=== PATIENT | male | born 1940 | race Caucasian/White ===

== ENCOUNTER → 2017-01-30 | Day surgery (SDC) | payer MEDICARE, BC ==
[~2017-01-30] MED LIST: ACETAMINOPHEN 1000 MG/100 ML VIAL IV ONE; ACIP20TA19 PO; ACIP20TA6 PO; ASPI81 PO; ASPI81TA11 PO; ATOR40TA PO; ATOR40TA16 PO; B-COTAB41 PO; BUPIVACAINE/EPINEPHRINE 0.5% PF 30 ML VIAL ONE; BUPR522T PO; CALC500C16 CHEW; CALC500T19 PO; CLON1 PO; CLON1TAB PO; DULO20 PO; ENAL2.5 PO; ENAL5TAB PO; EZET10 PO; FURO20TA PO; FURO40TA PO; GARL500C PO; GARL500C5 PO; INSU1INJ3 SQ; LACTATED RINGER'S 1000 ML INJ 1,000 ML ONE; METO200T3 PO; MIDAZOLAM HCL 2 MG/2 ML VIAL ONE; MULTTAB67 PO; PROPOFOL 200 MG/20 ML AMP IV ONE; SILD20TA11 PO; TAB-TAB PO; TAMS0.4C4 PO; TAMS0.4C67 PO; TRAZ300T2 PO; VITACAP7 PO; ZETI10TA5 PO; [UNRECOGNIZED DRUG - CODE] PO; ceFAZolin INJ 1,000 MG VIAL ONE
--- NOTE | 2017-01-30 17:24 | TN ---
cc: IZABELLA MANZANO DATE OF SURGERY 01/30/2017 PREOPERATIVE DIAGNOSIS 1. Right back mass 4 cm. 2. Left gynecomastia. POSTOPERATIVE DIAGNOSES 1. Right back mass 4 cm. 2. Left gynecomastia. PROCEDURE 1. Excision of right back mass 4 cm elliptical incision measuring 5 x 7 cm. 2. Subcutaneous mastectomy for gynecomastia, left breast. ANESTHESIA General. SURGEON Dr. Manzano INDICATIONS This is a pleasant 76-year-old gentleman. He has a fairly tender left breast from gynecomastia. He also has a groin mass on the right side of his back that required surgical excision. PROCEDURE The patient taken to the operating room, placed on the operating room table. After anesthesia he is placed in the right lateral decubitus position. The area in question is left back had been previously marked. We make an elliptical incision along the area in question and this is completely excised with an incision measuring 5 x 7 cm, appears to be a sebaceous cyst or inclusion cyst. This was passed off the field then irrigated with Betadine, assure hemostasis with electrocautery device and close the deep layer with a 2-0 Vicryl and skin is reapproximated with interrupted 3-[address] then [address] the patient back flat on the table. His left chest is prepped with Betadine. We make a curvilinear incision along the lower outer quadrant of the nipple-areolar complex. Dissect circumferentially to remove the gynecomastia enlarged tender breast tissue down to the pectoralis muscle. This was done with a combination of blunt dissection and sharp dissection and electrocautery dissection. The area question is then passed off the field. The area was irrigated copiously. Hemostasis assured with electrocautery device. We then close the deep layer with a 3-0 Vicryl and skin is closed with a 4-0 Monocryl. Steri-Strips applied. Sterile bandage applied. The patient tolerated the procedure well and had no immediate postop complications. Izabella Manzano MD JDB/EO /4:43 PM /5:04 PM
== END | disposition home or self-care (01) ==
LOC: ESDC 09:28
PROVIDERS: ATTEND Surgery
DX: N62 Hypertrophy of breast (principal); L72.0 Epidermal cyst; E11.9 Type 2 diabetes mellitus without complications; Z79.4 Long term (current) use of insulin
CPT/HCPCS: 00300; 00400; 11406; 19300; 82948; 88304; 88305; J0131; J0690; J2250; J3010; J7120; 88307

== ENCOUNTER → 2017-02-18 | Day surgery (SDC) | payer MEDICARE, BC ==
[~2017-02-18] MED LIST changes: -ACETAMINOPHEN 1000 MG/100 ML VIAL IV ONE; -ACIP20TA19 PO; -ASPI81 PO; -ATOR40TA PO; -B-COTAB41 PO; -BUPIVACAINE/EPINEPHRINE 0.5% PF 30 ML VIAL ONE; -BUPR522T PO; -CALC500T19 PO; -ENAL2.5 PO; -EZET10 PO; -FURO20TA PO; -GARL500C5 PO; +INCOBOTULINUMTOXINA 200 UNITS VIAL IM ONE; -LACTATED RINGER'S 1000 ML INJ 1,000 ML ONE; -MIDAZOLAM HCL 2 MG/2 ML VIAL ONE; -PROPOFOL 200 MG/20 ML AMP IV ONE; +SODIUM CHLORIDE 0.9% 10 ML VIAL ONE; -TAB-TAB PO; -TAMS0.4C67 PO; -ceFAZolin INJ 1,000 MG VIAL ONE
--- NOTE | 2017-02-21 11:33 | M6 ---
cc: MIRIAN PAZ M.D. DATE 02/18/2017 DATE OF 1940 PROCEDURE Injection botulinum toxin type A (Xeomin) left trapezius and posterior cervical musculature. PROCEDURE NOTE History and physical was completed and signed. Consent was signed. Procedure site was marked. Medications were listed and reconciled. Pain score was recorded. Allergies were noted. Time out was taken. Fluoroscopy time was recorded where applicable. Blood pressure cuff, pulse oximeter were applied. The patient was placed in the sitting position. The skin over the left trapezius and posterior cervical area was prepped with alcohol. The areas of greatest spasticity were identified. A 27 gauge needle was used to inject a total of 200 units of Xeomin at six different locations corresponding to the areas of greatest spasticity. Following this, the patient was observed in the recovery area with stable vital signs prior to being discharged. W. MD MARYLU Cortez/TYRONE /7:28 AM /11:37 AM
== END | disposition home or self-care (01) ==
LOC: PHSDC 06:30
PROVIDERS: ATTEND Pain Medicine Interventional Pain Medicine
DX: M54.2 Cervicalgia (principal); M25.512 Pain in left shoulder; R51 Headache; I11.0 Hypertensive heart disease with heart failure; I50.9 Heart failure, unspecified; E11.9 Type 2 diabetes mellitus without complications; E78.00 Pure hypercholesterolemia, unspecified; E04.1 Nontoxic single thyroid nodule; Z85.46 Personal history of malignant neoplasm of prostate; Z96.653 Presence of artificial knee joint, bilateral
CPT/HCPCS: 64616; J0588

== ENCOUNTER 2017-05-17 11:14 | Inpatient (IN) | payer MEDICARE, BC ==
[~2017-05-17] VITALS: Ht 180.3 cm; Wt 122.0 kg
[2017-05-17] VITALS (7 sets, daily range): BP systolic 110–148; BP diastolic 56–93; PULSE 72–93; RESP 16–20; TEMP 97.8–98; O2SAT 92–95
[~2017-05-17 11:14] MED LIST changes: -DULO20 PO; -GARL500C PO; -INCOBOTULINUMTOXINA 200 UNITS VIAL IM ONE; -SODIUM CHLORIDE 0.9% 10 ML VIAL ONE
--- NOTE | 2017-05-17 11:32 | PD ---
HPI Chief Complaint: Fall Time Seen by Provider: 11:32 Travel History International Travel<30 days: No Contact w/Intl Traveler<30days: No Traveled to known affect area: No History of Present Illness HPI 76-year-old male presents emergency department for evaluation of right wrist, neck, head pain status post fall last night. Patient reports he slipped on a wood floor while wearing socks falling onto the ground injuring his right wrist and hitting his head on a sliding glass door. He denies loss of consciousness. Patient is not anticoagulated. He reports a gradual onset throbbing type headache since the event. He reports generalized posterior neck pain. He reports generalized right wrist pain and swelling. He denies numbness/tingling/ weakness in any extremities. He denies nausea or vomiting or abdominal pain. He denies chest pain or shortness of breath. PFSH Past Medical History Arthritis: Yes (KNEES, SHOULDERS) Autoimmune Disease: No Blood Disorders: No Anxiety: Yes Depression: Yes Cancer: Yes (PROSTATE) Cardiac Catheterization: No Cardiovascular Problems: Yes (CHF, CARDIAC CATH x3) High Cholesterol: No Chemotherapy: No Chest Pain: No Diabetes: Yes (INSULIN DEP ) Endocrine: Yes Gastrointestinal Disorders: No GERD: Yes Glaucoma: No Genitourinary: No Hepatitis: No Hiatal Hernia: No Hypertension: Yes Immune Disorder: No Implanted Vascular Access Dvce: Yes Musculoskeletal: Yes (NECK, ARTHRITITS, PAIN LEFT WRIST FROM SPUR) Neurologic: Yes (cervical pain) Psychiatric: Yes (ANXIETY & DEPRESSION) Reproductive: Yes (HX: ENLARGED PROSTATE; HX PROSTATE SEEDS & RADIATION ) Respiratory: Yes (SLEEP APNEA - USES CPAP; ) Integumentary: No Radiation Therapy: Yes (2002 ) Sleep Apnea: Yes (ON CPAP MACHINE AT NIGHT) Thyroid Disease: Yes Ulcer: Yes (STOMACH ULCERS) Past Surgical History Abdominal Surgery: Yes (appendectomy geeta hernia repair) AICD: No Body Medical Devices: LEFT ANKLE WITH PIN + GEETA KNEE REPLAC, radioactive seed implants to prostat Cardiac Surgery: Yes (CARDIAC CATHS X 3 (NO STENTS NO SURG)) Coronary Artery Bypass Graft: No Ear Surgery: No Endocrine Surgery: No Eye Surgery: No Genitourinary Surgery: Yes (radioactive seed implants) Joint Replacement: Yes (BILAT KNEE) Oral Surgery: Yes (TONSILLECTOMY) Pacemaker: No Thoracic Surgery: No Other Surgery: Yes Social History Alcohol Use: No Tobacco Use: No Substance Use: No Allergies-Medications (Allergen,Severity, Reaction): Coded Allergies: doxycycline (Unverified Allergy, Severe, rash, 05/17/17) Reported Meds & Prescriptions Reported Meds & Active Scripts Active Reported Klonopin (Clonazepam) 1 Mg Tab 2 Mg PO BID Sildenafil 20 Mg Tab 20 Mg PO TID Calcium Carbonate (Antacid) 500 Mg Chew 1,000 Mg CHEW DAILY PRN Aplenzin ER 24 HR (Bupropion Hydrobromide ER 24 HR) 522 Mg Nichole 522 Mg PO DAILY Clonazepam 1 Mg Tab 1 Mg PO BID B Complex (B-Complex Vitamins) 1 Cap 1 Cap PO DAILY Humulin 70-30 Kwikpen Pen Inj (Insulin NPH Isophane-Reg (Human) 70-30 Inj) 300 Unit/3 Ml Pen 46 Units SQ DAILY@0600 Humulin 70-30 Kwikpen Pen Inj (Insulin NPH Isophane-Reg (Human) 70-30 Inj) 300 Unit/3 Ml Pen 44 Units SQ HS Enalapril (Enalapril Maleate) 5 Mg Tab 2.5 Mg PO DAILY Zetia (Ezetimibe) 10 Mg Tab 10 Mg PO DAILY Aciphex (Rabeprazole Sodium) 20 Mg Tab 20 Mg PO DAILY Metoprolol Succinate ER 24 HR (Metoprolol Succinate) 200 Mg Tab 100 Mg PO DAILY Multiple Vitamin 1 Tab 1 Tab PO DAILY Atorvastatin (Atorvastatin Calcium) 40 Mg Tab 40 Mg PO HS Trazodone (Trazodone HCl) 300 Mg Tab 150 Mg PO HS Tamsulosin (Tamsulosin HCl) 0.4 Mg Cap 0.4 Mg PO HS Furosemide 40 Mg Tab 40 Mg PO DAILY Aspirin EC (Aspirin) 81 Mg Tabdr 81 Mg PO DAILY Review of Systems Except as stated in HPI: all other systems reviewed are Neg General / Constitutional: No: Fever Eyes: No: Visual changes HENT: Positive: Headaches Cardiovascular: No: Chest Pain or Discomfort Respiratory: No: Shortness of Breath Gastrointestinal: No: Abdominal Pain Genitourinary: No: Dysuria Musculoskeletal: Positive: Other (right wrist pain) Skin: No Rash Physical Exam Narrative GENERAL: Alert, well-appearing elderly male in no acute distress. C-collar in place. SKIN: Focused skin assessment warm/dry. Mild ecchymosis and swelling to the right wrist HEAD: Atraumatic. Normocephalic. EYES: Pupils equal and round. No scleral icterus. No injection or drainage. EOMs intact. ENT: No nasal bleeding or discharge. Mucous membranes pink and moist. NECK: Trachea midline. No JVD. Tenderness over the midline cervical spine. C- collar in place. CARDIOVASCULAR: Regular rate and rhythm. No murmur appreciated. CHEST: No rib tenderness or crepitus. RESPIRATORY: No accessory muscle use. Clear to auscultation. Breath sounds equal bilaterally. GASTROINTESTINAL: Abdomen soft, non-tender, nondistended. Hepatic and splenic margins not palpable. MUSCULOSKELETAL: No obvious deformities. No clubbing. No cyanosis. No edema. Right upper extremity: Notable swelling, ecchymosis, tenderness to the medial lateral aspect of the wrist. 2+ distal pulses. Limited range of motion due to pain. Brisk cap refill. Normal sensation within the hand and digit. NEUROLOGICAL: Awake and alert. No obvious cranial nerve deficits. Motor grossly within normal limits. Normal speech. 5 out of 5 strength in upper and lower extremities. Equal hand grasp. PSYCHIATRIC: Appropriate mood and affect; insight and judgment normal. Data Data Last Documented VS Vital Signs Date Time Temp Pulse Resp B/P (MAP) Pulse Ox O2 Delivery O2 Flow Rate FiO2 05/17/17 12:33 84 16 140/77 (98) 92 Room Air 05/17/17 11:[address] Brain W/O Iv Contrast(Rout) (05/17/17 ) Ct Cerv Spine W/O Contrast (05/17/17 ) Wrist, Complete ([id number]) (05/17/17 ) Apply Cervical Collar (05/17/17 12:03) Splint Or Brace Apply/Monitor (05/17/17 12:04) Complete Blood Count With Diff (05/17/17 12:20) Comprehensive Metabolic Panel (05/17/17 12:20) Prothrombin Time / Inr (Pt) (05/17/17 12:20) Act Partial Throm Time (Ptt) (05/17/17 12:20) Fiberglass Sugartong Sp Ad Arm (05/17/17 ) Sling Cradle Arm (05/17/17 ) Consult Neurosurgery (05/17/17 ) (Hub Use Only)Inp Phy Cons/Ref (05/17/17 ) Admit Order (Ed Use Only) (05/17/17 12:42) Labs Laboratory Tests Test 05/17/17 12:31 White Blood Count 9.8 TH/MM3 Red Blood Count 4.48 MIL/MM3 Hemoglobin 13.8 GM/DL Hematocrit 40.4 % Mean Corpuscular Volume 90.0 FL Mean Corpuscular Hemoglobin 30.9 PG Mean Corpuscular Hemoglobin Concent 34.3 % Red Cell Distribution Width 12.4 % Platelet Count 153 TH/MM3 Mean Platelet Volume 8.6 FL Neutrophils (%) (Auto) 77.0 % Lymphocytes (%) (Auto) 11.6 % Monocytes (%) (Auto) 6.0 % Eosinophils (%) (Auto) 4.8 % Basophils (%) (Auto) 0.6 % Neutrophils # (Auto) 7.5 TH/MM3 Lymphocytes # (Auto) 1.1 TH/MM3 Monocytes # (Auto) 0.6 TH/MM3 Eosinophils # (Auto) 0.5 TH/MM3 Basophils # (Auto) 0.1 TH/MM3 CBC Comment DIFF FINAL Differential Comment Prothrombin Time 10.3 SEC Prothromb Time International Ratio 0.9 RATIO Activated Partial Thromboplast Time 24.3 SEC Blood Urea Nitrogen 11 MG/DL Creatinine 0.96 MG/DL Random Glucose 167 MG/DL Total Protein 6.2 GM/DL Albumin 3.3 GM/DL Calcium Level 8.7 MG/DL Alkaline Phosphatase 90 U/L Aspartate Amino Transf (AST/SGOT) 20 U/L Alanine Aminotransferase (ALT/SGPT) 32 U/L Total Bilirubin 0.6 MG/DL Sodium Level 139 MEQ/L Potassium Level 3.7 MEQ/L Chloride Level 105 MEQ/L Carbon Dioxide Level 29.3 MEQ/L Anion Gap 5 MEQ/L Estimat Glomerular Filtration Rate 76 ML/MIN [facility] Medical Decision Making Medical Screen Exam Complete: Yes Emergency Medical Condition: Yes Differential Diagnosis Wrist fracture versus contusion, cervical strain versus cervical spine fracture , ICH versus minor closed head injury Narrative Course 76-year-old male presents emergency department for evaluation of right wrist pain, neck pain, headache status post fall yesterday evening. There was no loss of consciousness. Patient is not anticoagulated. Patient reports he slipped on the floor while wearing socks falling onto an outstretched hand and hitting his head on a sliding glass door. On exam patient is well-appearing. He has notable swelling and tenderness to palpation of the right wrist. No deformity noted. 2+ distal pulses. Normal sensation within the extremity. Patient has a normal neurologic exam. Normal strength and sensation in upper extremities. C-collar was placed in triage. CT scan of the brain, cervical spine, x-ray of right wrist pending. CT of the cervical spine: C1 fracture X-ray right wrist: Nondisplaced distal radius fracture My attending physician Dr. Atwood assumed care of patient after radiology images were obtained. Please see his note for further details on continued care patient. Adia Yang May 17, 2017 11:32
--- NOTE | 2017-05-17 11:51 | RADRPT ---
EXAM DATE/TIME: 05/17/2017 11:35 [facility] COMPARISON: No previous studies available for comparison. INDICATIONS : Fall, right wrist pain. MEDICAL HISTORY : None. SURGICAL HISTORY : None. ENCOUNTER: Initial ACUITY: 1 day PAIN SCORE: 10/10 LOCATION: Right wrist FINDINGS: There is no evidence of dislocation with degenerative osteophytic changes of the first metacarpal mul tangular articulation. Additionally mild degenerative osteoarthritic changes are noted of the carpal radial articulation. On lateral view there is a cortical disruption ventrally of the distal radius wi th 1-1/2 cm proximal to the articular surface consistent with a non-displaced fracture. CONCLUSION: Subtle nondisplaced fracture cortical disruption ventral aspect of the distal radius. Ryan Franco MD on May 17, 2017 at 11:48 Board Certified Radiologist. This report was verified electronically.
--- NOTE | 2017-05-17 11:56 | RADRPT ---
EXAM DATE/TIME: 05/17/2017 11:47 [facility] COMPARISON: No previous studies available for comparison. INDICATIONS : Trauma. Fall. RADIATION DOSE: 65.42 CTDIvol (mGy) MEDICAL HISTORY : Carcinoma, prostate. Congestive heart failure. Diabetes mellitus type 2.Hypertension. SURGICAL HISTORY : Appendectomy. Inguinal hernia repair. ENCOUNTER: Initial ACUITY: 1 day PAIN SCALE: 4/10 LOCATION: cranial TECHNIQUE: Multiple contiguous axial images were obtained of the head. Using automated exposure control and adj ustment of the mA and/or kV according to patient size, radiation dose was kept as low as reasonably a chievable to obtain optimal diagnostic quality images. DICOM format image data is available electro nically for review and comparison. FINDINGS: CEREBRUM: The ventricles are mildly prominent consistent with atrophy. No evidence of midline shift, mass lesi on, hemorrhage or acute infarction. No extra-axial fluid collections are seen. POSTERIOR FOSSA: The cerebellum and brainstem are intact. The 4th ventricle is midline. The cerebellopontine angle i s unremarkable. EXTRACRANIAL: The visualized portion of the orbits is intact. Almost complete opacification right maxillary sinus. SKULL: The calvaria is intact. No evidence of skull fracture. CONCLUSION: Cerebral atrophy. No acute intracranial abnormality. Chronic right maxillary sinusitis. Don Eden MD on May 17, 2017 at 11:54 Board Certified Radiologist. This report was verified electronically.
--- NOTE | 2017-05-17 12:10 | RADRPT ---
EXAM DATE/TIME: 05/17/2017 11:47 This report includes an Addendum and supersedes previous reports for this exam. This report includes an Addendum and supersedes previous reports for this exam. [facility] COMPARISON: No previous studies available for comparison. INDICATIONS : Trauma. Fell last night. Left neck pain. RADIATION DOSE: 26.60 CTDIvol (mGy) MEDICAL HISTORY : Carcinoma, prostate. Congestive heart failure. Diabetes mellitus type 2.Hypertension. SURGICAL HISTORY : Appendectomy. Inguinal hernia repair. ENCOUNTER: Initial ACUITY: 1 day PAIN SCALE: 4/10 LOCATION: Left neck TECHNIQUE: Volumetric scanning of the cervical spine was performed. Multiplanar reconstructions in the sagittal, coronal and oblique axial planes were performed. Using automated exposure control and adjustment o f the mA and/or kV according to patient size, radiation dose was kept as low as reasonably achievable to obtain optimal diagnostic quality images. DICOM format image data is available electronically f or review and comparison. FINDINGS: And soft tissues are normal. Degenerative disc disease noted at C5-6 narrative space and anterior mar ginal spurring is multilevel facet arthritic changes. There is acute fracture of C2 left lateral mass extending i nto the base of the left lamina adjacent without displacement. This vertically oriented. CONCLUSION: Nondisplaced fracture C2 left lateral mass extending into the base of the lamina laterally Ryan Franco MD on May 17, 2017 at 12:04 Board Certified Radiologist. This report was verified electronically. ADDENDUM: There is a typographical error occurred. The fracture is of the C1 lateral mass Ryan Franco MD on May 17, 2017 at 12:26 Board Certified Radiologist. This report was verified electronically. ADDENDUM: Ryan Franco MD on May 17, 2017 at 12:29 Board Certified Radiologist. This report was verified electronically.
--- NOTE | 2017-05-17 12:20 | PD ---
Physical Exam Date Seen by Provider: May 17, 2017 Narrative GENERAL: patient supine and advised to stay supine and not move SKIN: Warm and dry. HEAD: Atraumatic. Normocephalic. EYES: Pupils equal and round. No scleral icterus. No injection or drainage. ENT: No nasal bleeding or discharge. Mucous membranes pink and moist. NECK: Trachea midline. No JVD. love collar placed in department. CARDIOVASCULAR: Regular rate and rhythm. RESPIRATORY: No accessory muscle use. Clear to auscultation. Breath sounds equal bilaterally. GASTROINTESTINAL: Abdomen soft, non-tender, nondistended. MUSCULOSKELETAL: Extremities without clubbing, cyanosis, or edema. No obvious deformities. ttp at distal right radius area will place OCL on it. NEUROLOGICAL: Awake and alert. No obvious cranial nerve deficits. Motor grossly within normal limits. Five out of 5 muscle strength in the arms and legs. Normal speech. PSYCHIATRIC: Appropriate mood and affect; insight and judgment normal. Data Data Last Documented VS Vital Signs Date Time Temp Pulse Resp B/P (MAP) Pulse Ox O2 Delivery O2 Flow Rate FiO2 05/17/17 12:33 84 16 140/77 (98) 92 Room Air 05/17/17 11:[address] Brain W/O Iv Contrast(Rout) (05/17/17 ) Ct Cerv Spine W/O Contrast (05/17/17 ) Wrist, Complete ([id number]) (05/17/17 ) Apply Cervical Collar (05/17/17 12:03) Splint Or Brace Apply/Monitor (05/17/17 12:04) Complete Blood Count With Diff (05/17/17 12:20) Comprehensive Metabolic Panel (05/17/17 12:20) Prothrombin Time / Inr (Pt) (05/17/17 12:20) Act Partial Throm Time (Ptt) (05/17/17 12:20) Fiberglass Sugartong Sp Ad Arm (05/17/17 ) Sling Cradle Arm (05/17/17 ) Consult Neurosurgery (05/17/17 ) (Hub Use Only)Inp Phy Cons/Ref (05/17/17 ) Admit Order (Ed Use Only) (05/17/17 12:42) Labs Laboratory Tests Test 05/17/17 12:31 White Blood Count 9.8 TH/MM3 Red Blood Count 4.48 MIL/MM3 Hemoglobin 13.8 GM/DL Hematocrit 40.4 % Mean Corpuscular Volume 90.0 FL Mean Corpuscular Hemoglobin 30.9 PG Mean Corpuscular Hemoglobin Concent 34.3 % Red Cell Distribution Width 12.4 % Platelet Count 153 TH/MM3 Mean Platelet Volume 8.6 FL Neutrophils (%) (Auto) 77.0 % Lymphocytes (%) (Auto) 11.6 % Monocytes (%) (Auto) 6.0 % Eosinophils (%) (Auto) 4.8 % Basophils (%) (Auto) 0.6 % Neutrophils # (Auto) 7.5 TH/MM3 Lymphocytes # (Auto) 1.1 TH/MM3 Monocytes # (Auto) 0.6 TH/MM3 Eosinophils # (Auto) 0.5 TH/MM3 Basophils # (Auto) 0.1 TH/MM3 CBC Comment DIFF FINAL Differential Comment Blood Urea Nitrogen 11 MG/DL Creatinine 0.96 MG/DL Random Glucose 167 MG/DL Total Protein 6.2 GM/DL Albumin 3.3 GM/DL Calcium Level 8.7 MG/DL Alkaline Phosphatase 90 U/L Aspartate Amino Transf (AST/SGOT) 20 U/L Alanine Aminotransferase (ALT/SGPT) 32 U/L Total Bilirubin 0.6 MG/DL Sodium Level 139 MEQ/L Potassium Level 3.7 MEQ/L Chloride Level 105 MEQ/L Carbon Dioxide Level 29.3 MEQ/L Anion Gap 5 MEQ/L Estimat Glomerular Filtration Rate 76 ML/MIN [facility] Medical Record Reviewed: Yes Supervised Visit with PEGGY: No Physician Communication Physician Communication D/W DR MARTINEZ WHO RECC XFER TO [facility], ADMIT TO TRAUMA SERVICE AND CONSULT HIM ( WHICH I ALREADY DID). Diagnosis Primary Impression: Closed C1 fracture Qualified Codes: S12.001A - Unspecified nondisplaced fracture of first cervical vertebra, initial encounter for closed fracture Additional Impression: Distal radius fracture, right Qualified Codes: S52.501A - Unspecified fracture of the lower end of right radius, initial encounter for closed fracture Disposition: 01 DISCHARGE HOME Condition: Stable Ruben Atwood MD May 17, 2017 12:20
[2017-05-17 12:36] LABS: AUTOMATED NEUTROPHIL # 7.5 TH/MM3 (1.8-7.7); BASOPHIL # 0.1 TH/MM3 (0-0.2); BASOPHIL % 0.6 % (0.0-2.0); EOSINOPHIL # 0.5 TH/MM3 (0-0.4); EOSINOPHIL % 4.8 % (0.0-4.0); HEMATOCRIT 40.4 % (39.0-51.0); HEMO FLAGS DIFF FINAL; LYMPH % 11.6 % (9.0-44.0); LYMPHOCYTE # 1.1 TH/MM3 (1.0-4.8); MEAN CORPUSCULAR HEMOGLOBIN 30.9 PG (27.0-34.0); MEAN CORPUSCULAR HGB CONC 34.3 % (32.0-36.0); PLATELET COUNT 153 TH/MM3 (150-450); RED BLOOD COUNT 4.48 MIL/MM3 (4.50-5.90); RED CELL DISTRIBUTION WIDTH 12.4 % (11.6-17.2); WHITE BLOOD COUNT 9.8 TH/MM3 (4.0-11.0)
[2017-05-17 12:44] LABS: CHLORIDE 105 MEQ/L (98-107); POTASSIUM 3.7 MEQ/L (3.5-5.1); SODIUM (NA) 139 MEQ/L (136-145)
[2017-05-17 12:48] LABS: ANION GAP 5 MEQ/L (5-15); BICARBONATE 29.3 MEQ/L (21.0-32.0); BLOOD UREA NITROGEN 11 MG/DL (7-18)
[2017-05-17 12:51] LABS: ALT (GPT) 32 U/L (12-78); AST (GOT) 20 U/L (15-37); GLOMERULAR FILTRATION RATE 76 ML/MIN (>89)
[2017-05-17 12:52] LABS: TOTAL BILIRUBIN ADULT 0.6 MG/DL (0.2-1.0)
[2017-05-17 12:54] LABS: ALKALINE PHOSPHATASE 90 U/L (45-117)
[2017-05-17 13:11] LABS: APTT (PATIENT) 24.3 SEC (24.3-30.1); INTERNATIONAL NORMALIZED RATIO 0.9 RATIO; PROTHROMBIN TIME - PATIENT 10.3 SEC (9.8-11.6)
--- NOTE | 2017-05-17 14:59 | PD.CONS ---
HPI Service Neurosurgery Consult Requested By Dr Epstein Reason for Consult C1 fracture Primary Care Physician Feliberto Shaffer, DO History of Present Illness Mr. Sykes is a 76-year-old white male with history of prostate cancer, type 2 diabetes, CHF, sleep apnea uses CPAP, and osteoarthritis. He presented to the [place] ED after he had a fall last night. Apparently he was walking on hardwood floors wearing socks, and he slipped and fell on the ground injuring his right wrist and hitting his head on a sliding glass door. He did not lose consciousness. No seizure activity reported. No tongue bitting. No incontinence of sotol or urine. He reported a gradual onset of a throbbing type headache since the event occur. He is complaining of generalized posterior neck pain. He also had pain in the right wrist with swelling of the wrist. No numbness, no tingling, no weakness of any extremities. Patient was evaluated, imaging studies were completed. CT of the cervical spine showed a C1 fracture. Right wrist x-ray shows nondisplaced fracture cortical disruption ventral aspect of the distal radius. Patient was transferred to the main hospital and admitted to trauma services. A splint has been placed on the right forearm. Laboratory workup completed essentially unremarkable. Patient is complaining of mild pain to the left neck area but otherwise neurologically intact. Neurosurgery consultation requested Review of Systems Constitutional: DENIES: Diaphoretic episodes, Fatigue, Fever, Weight gain, Weight loss, Chills, Dizziness, Change in appetite, Night Sweats Endocrine: DENIES: Heat/cold intolerance, Polydipsia, Polyuria, Polyphagia Eyes: DENIES: Blurred vision, Diplopia, Eye inflammation, Eye pain, Vision loss , Photosensitivity, Double Vision Ears, nose, mouth, throat: DENIES: Tinnitus, Hearing loss, Vertigo, Nasal discharge, Oral lesions, Throat pain, Hoarseness, Ear Pain, Running Nose, Epistaxis, Sinus Pain, Toothache, Odynophagia Respiratory: DENIES: Apneas, Cough, Snoring, Wheezing, Hemoptysis, Sputum production, Shortness of breath Cardiovascular: DENIES: Chest pain, Palpitations, Syncope, Dyspnea on Exertion , PND, Lower Extremity Edema, Orthopnea, Claudication Gastrointestinal: DENIES: Abdominal pain, Black stools, Bloody stools, Constipation, Diarrhea, Nausea, Vomiting, Difficulty Swallowing, Anorexia Genitourinary: DENIES: Sexual dysfunction, Urinary frequency, Urinary incontinence, Urgency, Hematuria, Dysuria, Nocturia, Penile Discharge, Testicular Pain, Testicular Swelling Musculoskeletal: COMPLAINS OF: Joint pain (right wrist), Neck pain, DENIES: Muscle aches, Stiffness, Joint Swelling, Back pain Integumentary: DENIES: Abnormal pigmentation, Nail changes, Pruritus, Rash Hematologic/lymphatic: DENIES: Bruising, Lymphadenopathy Immunologic/allergic: DENIES: Eczema, Urticaria Neurologic: COMPLAINS OF: Headache, DENIES: Abnormal gait, Localized weakness, Paresthesias, Seizures, Speech Problems, Tremor, Poor Balance Psychiatric: DENIES: Anxiety, Confusion, Mood changes, Depression, Hallucinations, Agitation, Suicidal Ideation, Homicidal Ideation, Delusions Past Family Social History Allergies: Coded Allergies: doxycycline (Unverified Allergy, Severe, rash, 05/17/17) Past Medical History Prostate cancer CAD CHF Cardiac catheter 3 Insulin-dependent diabetes Sleep apnea on CPAP at night Arthritis Ulcers Past Surgical History Cardiac catheterization 3 Bilateral knee replacement Left ankle ORIF Tonsillectomy Prostate surgery Bilateral hernia repair Reported Medications Klonopin (Clonazepam) 1 Mg Tab 2 Mg PO BID Sildenafil 20 Mg Tab 20 Mg PO TID Calcium Carbonate (Antacid) 500 Mg Chew 1,000 Mg CHEW DAILY PRN Aplenzin ER 24 HR (Bupropion Hydrobromide ER 24 HR) 522 Mg Nichole 522 Mg PO DAILY Clonazepam 1 Mg Tab 1 Mg PO BID B Complex (B-Complex Vitamins) 1 Cap 1 Cap PO DAILY Humulin 70-30 Kwikpen Pen Inj (Insulin NPH Isophane-Reg (Human) 70-30 Inj) 300 Unit/3 Ml Pen 46 Units SQ DAILY@0600 Humulin 70-30 Kwikpen Pen Inj (Insulin NPH Isophane-Reg (Human) 70-30 Inj) 300 Unit/3 Ml Pen 44 Units SQ HS Enalapril (Enalapril Maleate) 5 Mg Tab 2.5 Mg PO DAILY Zetia (Ezetimibe) 10 Mg Tab 10 Mg PO DAILY Aciphex (Rabeprazole Sodium) 20 Mg Tab 20 Mg PO DAILY Metoprolol Succinate ER 24 HR (Metoprolol Succinate) 200 Mg Tab 100 Mg PO DAILY Multiple Vitamin 1 Tab 1 Tab PO DAILY Atorvastatin (Atorvastatin Calcium) 40 Mg Tab 40 Mg PO HS Trazodone (Trazodone HCl) 300 Mg Tab 150 Mg PO HS Tamsulosin (Tamsulosin HCl) 0.4 Mg Cap 0.4 Mg PO HS Furosemide 40 Mg Tab 40 Mg PO DAILY Aspirin EC (Aspirin) 81 Mg Tabdr 81 Mg PO DAILY Active Ordered Medications Aspirin (Ecotrin Ec) 81 mg DAILY PO ; Start 05/18/17 at 09:00 Atorvastatin Calcium (Lipitor) 40 mg HS PO ; Start 05/17/17 at 21:00 Calcium Carbonate (Tums Chew) 1,000 mg DAILY PRN CHEW HEARTBURN; Start at 15:00 Clonazepam (KlonoPIN) 1 mg BID PO ; Start 05/17/17 at 21:00 Docusate Sodium (Colace) 100 mg BID PO ; Start 05/17/17 at 21:00 Enalapril Maleate (Vasotec) 2.5 mg DAILY PO ; Start 05/18/17 at 09:00 Enoxaparin Sodium (Lovenox Inj) 40 mg Q24H SQ Last administered on 05/17/17t 16 :46; Start 05/17/17 at 17:00 EZETIMIBE (Zetia) 10 mg DAILY PO ; Start 05/18/17 at 09:00 Famotidine (Pepcid) 20 mg BID PO ; Start 05/17/17 at 21:00 Furosemide (Lasix) 40 mg DAILY PO ; Start 05/18/17 at 09:00; Stop 05/18/17 at 09 :00; Status DC Metoprolol Succinate (Toprol Xl) 100 mg DAILY PO ; Start 05/18/17 at 09:00 Miscellaneous (Pill Splitter) 1 ea UNSCH PRN OTHER SEE LABEL COMMENTS; Start at 16:15 Miscellaneous Information (Post-op Orders (for Pharmacy)) STAT ONCE XX ; Start 05/17/17 at 15:00; Stop 05/17/17 at 16:20; Status DC Morphine Sulfate (Morphine Inj) 4 mg Q3H PRN IV PUSH BREAKTHROUGH PAIN; Start 05/17/17 at 15:00 Multivitamins (Theragran) 1 tab DAILY PO ; Start 05/18/17 at 09:00 Naloxone HCl (Narcan Inj) 0.4 mg UNSCH PRN IV PUSH SEE LABEL COMMENTS; Start at 15:00 Non-Formulary Medication 522 mg DAILY PO ; Start 05/18/17 at 09:00; Status UNV Ondansetron HCl (Zofran Inj) 4 mg Q6H PRN IV NAUSEA OR VOMITING; Start at 15:00 Oxycodone/ Acetaminophen (Percocet 5-325 Mg) 1 tab Q4H PRN PO PAIN SCALE 3 TO 5 Last administered on 05/17/17t 16:46; Start 05/17/17 at 15:00 Patient Own Medication PT OWN MED: GARRET... DAILY@0600 SQ ; Start 05/18/17 at 06: 00; Status Future Hold Sildenafil Citrate (Revatio) 20 mg TID PO ; Start 05/17/17 at 18:00 Sodium Chloride (NS Flush) 2 ml BID IV FLUSH ; Start 05/17/17 at 21:00 Tamsulosin HCl (Flomax) 0.4 mg HS PO ; Start 05/17/17 at 21:00 Trazodone HCl (Desyrel) 150 mg HS PO ; Start 05/17/17 at 21:00 Family History Positive for coronary artery disease, his father in his 60s from myocardial infarction Social History Patient is , lives with his . Has grown children. No tobacco, no substance abuse, no alcohol abuse Physical Exam Vital Signs Vital Signs Date Time Temp Pulse Resp B/P (MAP) Pulse Ox O2 Delivery O2 Flow Rate FiO2 05/17/17 14:00 05/17/17 14:00 81 16 148/83 (104) 93 Room Air 05/17/17 12:33 84 16 140/77 (98) 92 Room Air 05/17/17 11:19 97.8 93 18 138/93 (108) 92 Physical Exam The patient is alert, awake and oriented to time, place and person. Speech is fluent. Higher cognitive functions are normal. Cranial nerve examination demonstrates the pupils to be equal, round, and reactive to light. Extra-ocular movements are intact. Facial motor and sensory function are normal and symmetrical. Gross hearing is intact, bilaterally. The uvula is midline and elevates symmetrically with the soft palate. Sternocleidomastoid and trapezius muscles have normal and symmetrical strength. Other cranial nerves are intact. Cervical spine has immobilization with a hard cervical collar Muscle testing reveals normal bulk and tone overall without rigidity, spasticity , fasciculations, or atrophy. Rigt forearm is splinted. Muscle strength is 5/5 in all muscle groups of both upper extremities including deltoid, biceps, triceps, brachioradialis, wrist extension and brush sander. In the lower extremities, strength is 5/5 in both iliopsoas, quadriceps, hamstrings, plantar flexion, dorsiflexion, and extensor hallicus longus. Sensory examination is intact to light touch and sharp/dull discrimination in both the upper and lower extremities, symmetrically. Deep tendon reflexes are 2+ and symmetrical in the biceps, triceps, and brachioradialis, bilaterally, in the upper extremities. In the lower extremities , the patellar and Achilles are 2+, bilaterally. There is a bilateral plantar flexion response. Hoffmanns sign is negative. There is no clonus or other abnormal reflexes noted. Cerebellar examination is intact to [id number] test, rapid rhythmic alternating motion. There is no dysmetria, dysdiadochokinesia, truncal ataxia, or tremor. Laboratory Laboratory Tests Test 05/17/17 12:31 White Blood Count 9.8 Red Blood Count 4.48 Hemoglobin 13.8 Hematocrit 40.4 Mean Corpuscular Volume 90.0 Mean Corpuscular Hemoglobin 30.9 Mean Corpuscular Hemoglobin Concent 34.3 Red Cell Distribution Width 12.4 Platelet Count 153 Mean Platelet Volume 8.6 Neutrophils (%) (Auto) 77.0 Lymphocytes (%) (Auto) 11.6 Monocytes (%) (Auto) 6.0 Eosinophils (%) (Auto) 4.8 Basophils (%) (Auto) 0.6 Neutrophils # (Auto) 7.5 Lymphocytes # (Auto) 1.1 Monocytes # (Auto) 0.6 Eosinophils # (Auto) 0.5 Basophils # (Auto) 0.1 CBC Comment DIFF FINAL Differential Comment Prothrombin Time 10.3 Prothromb Time International Ratio 0.9 Activated Partial Thromboplast Time 24.3 Blood Urea Nitrogen 11 Creatinine 0.96 Random Glucose 167 Total Protein 6.2 Albumin 3.3 Calcium Level 8.7 Alkaline Phosphatase 90 Aspartate Amino Transf (AST/SGOT) 20 Alanine Aminotransferase (ALT/SGPT) 32 Total Bilirubin 0.6 Sodium Level 139 Potassium Level 3.7 Chloride Level 105 Carbon Dioxide Level 29.3 Anion Gap 5 Estimat Glomerular Filtration Rate 76 Result Diagram: 05/17/17 1231 05/17/17 1231 Imaging Last 48 hours Impressions Wrist X-Ray 05/17/17 0000 Signed Impressions: Service Date/Time: Wednesday, May 17, 2017 11:35 - CONCLUSION: Subtle nondisplaced fracture cortical disruption ventral aspect of the distal radius. Ryan Franco MD Head CT 05/17/17 0000 Signed Impressions: Service Date/Time: Wednesday, May 17, 2017 11:47 - CONCLUSION: Cerebral atrophy. No acute intracranial abnormality. Chronic right maxillary sinusitis. Don Eden MD Cervical Spine CT 05/17/17 0000 Signed Impressions: Service Date/Time: Wednesday, May 17, 2017 11:47 - CONCLUSION: Nondisplaced fracture C2 left lateral mass extending into the base of the lamina laterally Ryan Franco MD ADDENDUM: There is a typographical error occurred. The fracture is of the C1 lateral mass Ryan Franco MD Attending Statement C1 fractuew. neuro checks in serial fashion. Bracing of C spine with [place] J collar. Pulmonary.. aggressive pulmonary toilette, nasotracheal suction, and breathing treatments with nebulizers. Radius fracture. Conttinue nonoperative managemen. The patient currently is splinted with a Sugar-Tong splint Nutrition. NPO Renal. monitor closely urine output, BUN and creatinine Endocrine. Monitor serial Acu checks and SSI as needed in detail ID monitor for signs of infection Protonix for stress ulcer prophylaxis Girish hossuzy and SCD's for DVT prophylaxis. Fredis Ocasio MD May 17, 2017 14:59
[2017-05-17] MEDS ORDERED: NALOXONE HCL 0.4 MG/ML AMP IV PUSH PRN (15:00)
[2017-05-17] MEDS ORDERED: CALCIUM CARBONATE 500 MG CHEWABLE TAB CHEW PRN (15:00)
[2017-05-17] MEDS ORDERED: Post-op Orders (for Pharmacy) MISC XX ONE (15:00)
[2017-05-17] MEDS ORDERED: SODIUM CHLORIDE 0.9% FLUSH 10 ML FLUSH IV FLUSH PRN (15:00)
[2017-05-17] MEDS ORDERED: ONDANSETRON HCL 4 MG/2 ML VIAL IV PRN (15:00)
--- NOTE | 2017-05-17 15:37 | MH ---
cc: LUCY SPIVEY MD DATE OF ADMISSION: 05/17/2017 ADMITTING DIAGNOSIS C2 fracture and right radius fracture. HISTORY OF PRESENT DISEASE A 76-year-old male who fell at home last night. Apparently he came to the emergency room this morning and reported severe headache as well as swelling of the right wrist. He was worked up and found to have a C2 lateral fracture plus a wrist fracture, hence the admission. He is being transferred from the [place] ER. PAST MEDICAL HISTORY 1. Prostate cancer. 2. Coronary artery disease. 3. CHF. 4. Cardiac catheterization x3. 5. Insulin dependent diabetes mellitus. 6. Sleep apnea on CPAP machine. 7. Arthritis. 8. Ulcers. PAST SURGICAL HISTORY 1. Cardiac catheterization x3. 2. Bilateral knee replacement. 3. Left ankle ORIF. 4. Tonsillectomy. 5. Prostate surgery. 6. Bilateral hernia repair. 7. Appendectomy. MEDICATIONS Multiple medications can be found in the record. SOCIAL HISTORY Does not smoke. Does not drink. PHYSICAL EXAMINATION GENERAL: This is a pleasant 76-year-old male in no acute distress. HEENT: Normocephalic. No trauma to the head. Pupils equally reactive. Extraocular muscles intact. No hemotympanum. No Chen's sign or raccoon eyes. NECK: C-collar is in place. The patient is tender over the left side of the neck at the jawline but nothing other than that. CHEST: Bilateral breath sounds. HEART: Regular rhythm. ABDOMEN: Soft. Active bowel sounds. No rebound. No guarding. No masses. No signs of trauma to the abdomen. EXTREMITIES: Within normal limits with good proximal and distal pulses. No vascular deficit. The right arm has a cast on so examination is limited. Normal capillary refill, however. NEUROLOGIC: Neurologically the patient is fully intact. ASSESSMENT AND PLAN Patient with a C2 fracture without any neurologic deficit as well as fracture of the radius. The patient has multiple medical problems. He will be admitted to the floor. The hospitalist will be consulted. All things equal the patient can be transferred to the hospitalist service in the next 22-48 hours because there is nothing to do for trauma here. Lucy ADORNO/PEYTON /3:09 PM /3:27 PM
[2017-05-17] MEDS ORDERED: PILL SPLITTER OTHER PRN (16:15)
[2017-05-17] MEDS: ENOXAPARIN SODIUM 40 MG/0.4 ML SYRINGE SQ SCH (16:46)
[2017-05-17] MEDS: oxyCODONE/ACETAMINOPHEN 5 MG/325 MG TAB PO PRN ×2 (16:46→20:59)
--- NOTE | 2017-05-17 17:11 | PD.CONS ---
[facility] Service [place] [facility] Consult Requested By Dr. Rebolledo Reason for Consult Medical management Primary Care Physician Feliberto Shaffer DO Diagnoses: History of Present Illness Mr. Sykes is a pleasant 76-year-old white male with significant past medical history prostate cancer, type 2 diabetes, CHF, sleep apnea uses CPAP, arthritis. Patient presented to the [place] ER after he had a fall last night. Apparently the patient was walking on hardwood floors while wearing socks, he slipped and fell on the ground injuring his right wrist and hitting his head on a sliding glass door. He did not lose consciousness. He reported a gradual onset of a throbbing type headache since the event occur. Complaining of generalized posterior neck pain. He also had pain to the right wrist with swelling. No numbness, no tingling, no weakness of any extremities. Patient was evaluated, imaging studies were completed. CT of the cervical spine showed a C1 fracture. Right wrist x-ray shows subtle nondisplaced fracture cortical disruption ventral aspect of the distal radius. Patient was transferred to the main hospital and admitted to trauma services. Neurosurgery has been consulted. A splint has been placed on the right forearm. Laboratory workup completed essentially unremarkable. Patient is complaining of mild pain to the left neck area but otherwise neurologically intact. Hospital services are requested for medical management. (Silvia Nye) Review of Systems Constitutional: DENIES: Diaphoretic episodes, Fatigue, Fever, Weight gain, Weight loss, Chills, Dizziness, Change in appetite, Night Sweats Endocrine: DENIES: Heat/cold intolerance, Polydipsia, Polyuria, Polyphagia Eyes: DENIES: Blurred vision, Diplopia, Eye inflammation, Eye pain, Vision loss , Photosensitivity, Double Vision Ears, nose, mouth, throat: DENIES: Tinnitus, Hearing loss, Vertigo, Nasal discharge, Oral lesions, Throat pain, Hoarseness, Ear Pain, Running Nose, Epistaxis, Sinus Pain, Toothache, Odynophagia Respiratory: DENIES: Apneas, Cough, Snoring, Wheezing, Hemoptysis, Sputum production, Shortness of breath Cardiovascular: DENIES: Chest pain, Palpitations, Syncope, Dyspnea on Exertion , PND, Lower Extremity Edema, Orthopnea, Claudication Gastrointestinal: DENIES: Abdominal pain, Black stools, Bloody stools, Constipation, Diarrhea, Nausea, Vomiting, Difficulty Swallowing, Anorexia Genitourinary: DENIES: Sexual dysfunction, Urinary frequency, Urinary incontinence, Urgency, Hematuria, Dysuria, Nocturia, Penile Discharge, Testicular Pain, Testicular Swelling Musculoskeletal: COMPLAINS OF: Joint pain (right wrist), Neck pain, DENIES: Muscle aches, Stiffness, Joint Swelling, Back pain Integumentary: DENIES: Abnormal pigmentation, Nail changes, Pruritus, Rash Hematologic/lymphatic: DENIES: Bruising, Lymphadenopathy Immunologic/allergic: DENIES: Eczema, Urticaria Neurologic: COMPLAINS OF: Headache, DENIES: Abnormal gait, Localized weakness, Paresthesias, Seizures, Speech Problems, Tremor, Poor Balance Psychiatric: DENIES: Anxiety, Confusion, Mood changes, Depression, Hallucinations, Agitation, Suicidal Ideation, Homicidal Ideation, Delusions ( Silvia Nye) Past Family Social History Past Medical History Prostate cancer with seed implants CAD CHF Cardiac catheter 3 Insulin-dependent diabetes Sleep apnea on CPAP at night Arthritis Ulcers Past Surgical History Cardiac catheterization 3 Bilateral knee replacement Left ankle ORIF Tonsillectomy Prostate surgery Bilateral hernia repair Reported Medications Reported Meds & Active Scripts Active Reported Klonopin (Clonazepam) 1 Mg Tab 2 Mg PO BID Sildenafil 20 Mg Tab 20 Mg PO TID Calcium Carbonate (Antacid) 500 Mg Chew 1,000 Mg CHEW DAILY PRN Aplenzin ER 24 HR (Bupropion Hydrobromide ER 24 HR) 522 Mg Nichole 522 Mg PO DAILY Clonazepam 1 Mg Tab 1 Mg PO BID B Complex (B-Complex Vitamins) 1 Cap 1 Cap PO DAILY Humulin 70-30 Kwikpen Pen Inj (Insulin NPH Isophane-Reg (Human) 70-30 Inj) 300 Unit/3 Ml Pen 46 Units SQ DAILY@0600 Humulin 70-30 Kwikpen Pen Inj (Insulin NPH Isophane-Reg (Human) 70-30 Inj) 300 Unit/3 Ml Pen 44 Units SQ HS Enalapril (Enalapril Maleate) 5 Mg Tab 2.5 Mg PO DAILY Zetia (Ezetimibe) 10 Mg Tab 10 Mg PO DAILY Aciphex (Rabeprazole Sodium) 20 Mg Tab 20 Mg PO DAILY Metoprolol Succinate ER 24 HR (Metoprolol Succinate) 200 Mg Tab 100 Mg PO DAILY Multiple Vitamin 1 Tab 1 Tab PO DAILY Atorvastatin (Atorvastatin Calcium) 40 Mg Tab 40 Mg PO HS Trazodone (Trazodone HCl) 300 Mg Tab 150 Mg PO HS Tamsulosin (Tamsulosin HCl) 0.4 Mg Cap 0.4 Mg PO HS Furosemide 40 Mg Tab 40 Mg PO DAILY Aspirin EC (Aspirin) 81 Mg Tabdr 81 Mg PO DAILY (Silvia Nye) Allergies: Coded Allergies: doxycycline (Unverified Allergy, Severe, rash, 05/17/17) Active Ordered Medications Inpatient Medications Aspirin (Ecotrin Ec) 81 mg DAILY PO ; Start 05/18/17 at 09:00 Atorvastatin Calcium (Lipitor) 40 mg HS PO ; Start 05/17/17 at 21:00 Calcium Carbonate (Tums Chew) 1,000 mg DAILY PRN CHEW HEARTBURN; Start at 15:00 Clonazepam (KlonoPIN) 1 mg BID PO ; Start 05/17/17 at 21:00 Docusate Sodium (Colace) 100 mg BID PO ; Start 05/17/17 at 21:00 Enalapril Maleate (Vasotec) 2.5 mg DAILY PO ; Start 05/18/17 at 09:00 Enoxaparin Sodium (Lovenox Inj) 40 mg Q24H SQ Last administered on 05/17/17t 16 :46; Start 05/17/17 at 17:00 EZETIMIBE (Zetia) 10 mg DAILY PO ; Start 05/18/17 at 09:00 Famotidine (Pepcid) 20 mg BID PO ; Start 05/17/17 at 21:00 Furosemide (Lasix) 40 mg DAILY PO ; Start 05/18/17 at 09:00; Stop 05/18/17 at 09 :00; Status DC Metoprolol Succinate (Toprol Xl) 100 mg DAILY PO ; Start 05/18/17 at 09:00 Miscellaneous (Pill Splitter) 1 ea UNSCH PRN OTHER SEE LABEL COMMENTS; Start at 16:15 Miscellaneous Information (Post-op Orders (for Pharmacy)) STAT ONCE XX ; Start 05/17/17 at 15:00; Stop 05/17/17 at 16:20; Status DC Morphine Sulfate (Morphine Inj) 4 mg Q3H PRN IV PUSH BREAKTHROUGH PAIN; Start 05/17/17 at 15:00 Multivitamins (Theragran) 1 tab DAILY PO ; Start 05/18/17 at 09:00 Naloxone HCl (Narcan Inj) 0.4 mg UNSCH PRN IV PUSH SEE LABEL COMMENTS; Start at 15:00 Non-Formulary Medication 522 mg DAILY PO ; Start 05/18/17 at 09:00; Status UNV Ondansetron HCl (Zofran Inj) 4 mg Q6H PRN IV NAUSEA OR VOMITING; Start at 15:00 Oxycodone/ Acetaminophen (Percocet 5-325 Mg) 1 tab Q4H PRN PO PAIN SCALE 3 TO 5 Last administered on 05/17/17t 16:46; Start 05/17/17 at 15:00 Patient Own Medication PT OWN MED: GARRET... DAILY@0600 SQ ; Start 05/18/17 at 06: 00; Status Future Hold Sildenafil Citrate (Revatio) 20 mg TID PO ; Start 05/17/17 at 18:00 Sodium Chloride (NS Flush) 2 ml BID IV FLUSH ; Start 05/17/17 at 21:00 Tamsulosin HCl (Flomax) 0.4 mg HS PO ; Start 05/17/17 at 21:00 Trazodone HCl (Desyrel) 150 mg HS PO ; Start 05/17/17 at 21:00 Family History Positive for coronary artery disease, his father in his 60s from myocardial infarction Social History Patient is , lives with his . Has grown children. No tobacco, no substance abuse, no alcohol abuse. (Silvia Nye) Physical Exam Vital Signs Vital Signs Date Time Temp Pulse Resp B/P (MAP) Pulse Ox O2 Delivery O2 Flow Rate FiO2 05/17/17 14:00 05/17/17 14:00 81 16 148/83 (104) 93 Room Air 05/17/17 12:33 84 16 140/77 (98) 92 Room Air 05/17/17 11:19 97.8 93 18 138/93 (108) 92 Physical Exam GENERAL: This is a well-nourished, well-developed patient, in no apparent distress. SKIN: No rashes, ecchymoses or lesions. Cool and dry. HEAD: Atraumatic. Normocephalic. No temporal or scalp tenderness. EYES: Pupils equal round and reactive. Extraocular motions intact. No scleral icterus. No injection or drainage. ENT: Nose without bleeding, purulent drainage or septal hematoma. Throat without erythema, tonsillar hypertrophy or exudate. Uvula midline. Airway patent. NECK: Trachea midline. No JVD or lymphadenopathy. Neck is on a cervical collar. CARDIOVASCULAR: Regular rate and rhythm without murmurs, gallops, or rubs. RESPIRATORY: Clear to auscultation. Breath sounds equal bilaterally. No wheezes , rales, or rhonchi. GASTROINTESTINAL: Abdomen soft, non-tender, nondistended. No hepato-splenomegaly , or palpable masses. No guarding. MUSCULOSKELETAL: Right forearm in splint, intact sensation to right hand fingertips. No other joint abnormalities. NEUROLOGICAL: Patient is awake, alert oriented 3. Follows commands appropriately. No localized weakness. Laboratory Laboratory Tests Test 05/17/17 12:31 White Blood Count 9.8 Red Blood Count 4.48 Hemoglobin 13.8 Hematocrit 40.4 Mean Corpuscular Volume 90.0 Mean Corpuscular Hemoglobin 30.9 Mean Corpuscular Hemoglobin Concent 34.3 Red Cell Distribution Width 12.4 Platelet Count 153 Mean Platelet Volume 8.6 Neutrophils (%) (Auto) 77.0 Lymphocytes (%) (Auto) 11.6 Monocytes (%) (Auto) 6.0 Eosinophils (%) (Auto) 4.8 Basophils (%) (Auto) 0.6 Neutrophils # (Auto) 7.5 Lymphocytes # (Auto) 1.1 Monocytes # (Auto) 0.6 Eosinophils # (Auto) 0.5 Basophils # (Auto) 0.1 CBC Comment DIFF FINAL Differential Comment Prothrombin Time 10.3 Prothromb Time International Ratio 0.9 Activated Partial Thromboplast Time 24.3 Blood Urea Nitrogen 11 Creatinine 0.96 Random Glucose 167 Total Protein 6.2 Albumin 3.3 Calcium Level 8.7 Alkaline Phosphatase 90 Aspartate Amino Transf (AST/SGOT) 20 Alanine Aminotransferase (ALT/SGPT) 32 Total Bilirubin 0.6 Sodium Level 139 Potassium Level 3.7 Chloride Level 105 Carbon Dioxide Level 29.3 Anion Gap 5 Estimat Glomerular Filtration Rate 76 (Silvia Nye) Result Diagram: 05/17/17 1231 05/17/17 1231 Imaging Last Impressions Wrist X-Ray 05/17/17 0000 Signed Impressions: Service Date/Time: Wednesday, May 17, 2017 11:35 - CONCLUSION: Subtle nondisplaced fracture cortical disruption ventral aspect of the distal radius. Ryan Franco MD Head CT 05/17/17 0000 Signed Impressions: Service Date/Time: Wednesday, May 17, 2017 11:47 - CONCLUSION: Cerebral atrophy. No acute intracranial abnormality. Chronic right maxillary sinusitis. Don Eden MD Cervical Spine CT 05/17/17 0000 Signed Impressions: Service Date/Time: Wednesday, May 17, 2017 11:47 - CONCLUSION: Nondisplaced fracture C2 left lateral mass extending into the base of the lamina laterally Ryan Franco MD ADDENDUM: There is a typographical error occurred. The fracture is of the C1 lateral mass Ryan Franco MD (Silvia Nye) A/P Diagnosis: (1) Closed C1 fracture ICD Codes: S12.000A - Unspecified displaced fracture of first cervical vertebra , initial encounter for closed fracture Status: Acute (2) Distal radius fracture, right ICD Codes: S52.501A - Unspecified fracture of the lower end of right radius, initial encounter for closed fracture Status: Acute (3) Type 2 diabetes mellitus ICD Codes: E11.9 - Type 2 diabetes mellitus without complications Status: Chronic (4) Chronic congestive heart failure ICD Codes: I50.9 - Heart failure, unspecified Status: Chronic (5) Hypertension ICD Codes: I10 - Essential (primary) hypertension Status: Chronic (6) Sleep apnea ICD Codes: G47.30 - Sleep apnea, unspecified Status: Chronic Assessment and Plan Thank you for this consultation, we will be glad to assist with patient's medical care 76-year-old male admitted after he had a fall injuring right hand and hitting head on glass door. Acute C2 fracture after fall, no neurological deficits -Continue neurovascular checks -Neurosurgery in consultation -Continue collar in place -Trauma services also following patient Right distal radial nondisplaced fracture -Orthopedic has been consulted -Continue pain management Type 2 diabetes -Accu-Cheks before meals and at bedtime with insulin therapy -Diabetic diet Hypertension, stable -Continue home medication Chronic congestive heart failure, stable. -Monitor for signs and symptoms fluid overload Sleep apnea uses CPAP at night -Family has been asked to bring patient's CPAP, he can continue at current settings Home medications reviewed, initiated as indicated Lovenox and SCDs for DVT prophylaxis Pepcid for GI prophylaxis Continue with bedrest Plan of care has been discussed with patient and his family, attending and RN. Further management of the patient will be dependent on the hospital course This patient was seen by myself and Dr. Max, this H&P is written his behalf (Silvia Nye) Assessment and Plan seen, examined by myself, Dr Max, today 76-year-old male with a history of prostate cancer, coronary disease, diabetes, sleep apnea on C Pap, bilateral knee replacement, bilateral hernia repair, appendectomy FELL at home, admitted with C2 cervical spine fracture without cord compression and right distal radius fracture We will be happy to assume service Neurosurgery following We will also ask orthopedics to evaluate Discussed with mid level provider The exam, history, and the medical decision-making described in the above note were completed with the assistance of the mid-level provider. I reviewed the findings presented. I attest that I had a [id number] encounter with the patient on the same day, and personally performed and documented my assessment and findings in the medical record. (Brie Max MD) Problem Qualifiers (1) Closed C1 fracture: Qualified Codes: S12.001A - Unspecified nondisplaced fracture of first cervical vertebra, initial encounter for closed fracture (2) Distal radius fracture, right: Qualified Codes: S52.501A - Unspecified fracture of the lower end of right radius, initial encounter for closed fracture (3) Type 2 diabetes mellitus: Qualified Codes: E11.8 - Type 2 diabetes mellitus with unspecified complications (4) Chronic congestive heart failure: Qualified Codes: I50.9 - Heart failure, unspecified (5) Hypertension: Qualified Codes: I10 - Essential (primary) hypertension (6) Sleep apnea: Qualified Codes: G47.30 - Sleep apnea, unspecified Silvia Nye May 17, 2017 17:11 Brie Max MD May 17, 2017 17:31
[2017-05-17] MEDS ORDERED: GLUCAGON 1 MG/ML VIAL OTHER PRN ×2 (17:15→18:30)
[2017-05-17] MEDS ORDERED: DEXTROSE 50% IN WATER 50 ML VIAL(D50) IV PUSH PRN ×2 (17:15→18:30)
[2017-05-17] MEDS: SILDENAFIL CITRATE 20 MG TAB PO SCH (17:42)
[2017-05-17] MEDS: MORPHINE SULFATE 4 MG/ML INJ IV PUSH PRN ×2 (18:34→22:02)
[2017-05-17] MEDS: FAMOTIDINE 20 MG TAB PO SCH (20:59)
[2017-05-17] MEDS: traZODone HCL 50 MG TAB PO SCH (20:59)
[2017-05-17] MEDS: SODIUM CHLORIDE 0.9% FLUSH 10 ML FLUSH IV FLUSH SCH (20:59)
[2017-05-17] MEDS ORDERED: INSULIN ASPART SUPPLEMENTAL SCALE SQ SCH (21:00)
[2017-05-17] MEDS: INSULIN ASPART SUPPLEMENTAL SCALE SQ SCH (21:00)
[2017-05-17] MEDS: ATORVASTATIN 40 MG TAB PO SCH (21:00)
[2017-05-17] MEDS: TAMSULOSIN HCL 0.4 MG CAP PO SCH (21:00)
[2017-05-17] MEDS ORDERED: [UNRECOGNIZED DRUG - OTHER] SQ SCH (21:00)
[2017-05-17] MEDS: DOCUSATE SODIUM 100 MG CAP PO SCH (21:00)
[2017-05-17] MEDS: clonazePAM 1 MG TAB PO SCH (21:00)
[2017-05-17] MEDS ORDERED: MAGNESIUM HYDROXIDE SUSP 30 ML CUP PO SCH (21:00)
[2017-05-18] VITALS (8 sets, daily range): BP systolic 99–131; BP diastolic 57–70; PULSE 71–94; RESP 16–20; TEMP 97.3–98.7; O2SAT 93–95
[2017-05-18] MEDS: MORPHINE SULFATE 4 MG/ML INJ IV PUSH PRN ×2 (05:31→22:17)
[2017-05-18] MEDS ORDERED: [UNRECOGNIZED DRUG - OTHER] SQ SCH (06:00)
--- NOTE | 2017-05-18 07:49 | HHI.PR ---
Subjective Subjective Remarks Awake, responsive Resting in the bed, cervical collar on, complaints of neck pain, receiving pain management Right forearm and wrist secured with dressing and splinting Uses BiPAP at night, no acute shortness of breath or issues Afebrile Review of Systems Constitutional Constitutional: Fatigue, Weakness (secondary to accident/fall) Constitutional Remarks 10 point ROS done positives noted Musculoskeletal MS: Weakness, Stiffness, Swelling (right arm and wrist), Discomfort/Pain ( right arm wrist and neck) Psychiatric Psychiatric: Normal Mood Vitals/Results Vital Signs Vital Signs Date Time Temp Pulse Resp B/P (MAP) Pulse Ox O2 Delivery O2 Flow Rate FiO2 05/18/17 03:58 98.7 71 18 114/70 (85) 95 05/18/17 03:58 94 21 05/18/17 00:00 97.3 73 16 116/60 (78) 94 05/17/17 21:50 95 21 05/17/17 20:00 77 05/17/17 20:00 98.0 76 18 110/56 (74) 95 05/17/17 16:00 97.9 72 20 134/77 (96) 94 05/17/17 14:00 05/17/17 14:00 81 16 148/83 (104) 93 Room Air 05/17/17 12:33 84 16 140/77 (98) 92 Room Air 05/17/17 12:30 92 21 05/17/17 11:19 97.8 93 18 138/93 (108) 92 CBC/BMP: 05/17/17 1231 05/17/17 1231 Lab Results Laboratory Tests Test 05/17/17 12:31 05/18/17 05:43 White Blood Count 9.8 TH/MM3 Red Blood Count 4.48 MIL/MM3 Hemoglobin 13.8 GM/DL Hematocrit 40.4 % Mean Corpuscular Volume 90.0 FL Mean Corpuscular Hemoglobin 30.9 PG Mean Corpuscular Hemoglobin Concent 34.3 % Red Cell Distribution Width 12.4 % Platelet Count 153 TH/MM3 Mean Platelet Volume 8.6 FL Neutrophils (%) (Auto) 77.0 % Lymphocytes (%) (Auto) 11.6 % Monocytes (%) (Auto) 6.0 % Eosinophils (%) (Auto) 4.8 % Basophils (%) (Auto) 0.6 % Neutrophils # (Auto) 7.5 TH/MM3 Lymphocytes # (Auto) 1.1 TH/MM3 Monocytes # (Auto) 0.6 TH/MM3 Eosinophils # (Auto) 0.5 TH/MM3 Basophils # (Auto) 0.1 TH/MM3 CBC Comment DIFF FINAL Differential Comment Prothrombin Time 10.3 SEC Prothromb Time International Ratio 0.9 RATIO Activated Partial Thromboplast Time 24.3 SEC Blood Urea Nitrogen 11 MG/DL Creatinine 0.96 MG/DL Random Glucose 167 MG/DL Total Protein 6.2 GM/DL Albumin 3.3 GM/DL Calcium Level 8.7 MG/DL Alkaline Phosphatase 90 U/L Aspartate Amino Transf (AST/SGOT) 20 U/L Alanine Aminotransferase (ALT/SGPT) 32 U/L Total Bilirubin 0.6 MG/DL Sodium Level 139 MEQ/L Potassium Level 3.7 MEQ/L Chloride Level 105 MEQ/L Carbon Dioxide Level 29.3 MEQ/L Anion Gap 5 MEQ/L Estimat Glomerular Filtration Rate 76 ML/MIN Imaging Remarks Last Impressions Wrist X-Ray 05/17/17 0000 Signed Impressions: Service Date/Time: Wednesday, May 17, 2017 11:35 - CONCLUSION: Subtle nondisplaced fracture cortical disruption ventral aspect of the distal radius. Ryan Franco MD Head CT 05/17/17 0000 Signed Impressions: Service Date/Time: Wednesday, May 17, 2017 11:47 - CONCLUSION: Cerebral atrophy. No acute intracranial abnormality. Chronic right maxillary sinusitis. Don Eden MD Cervical Spine CT 05/17/17 0000 Signed Impressions: Service Date/Time: Wednesday, May 17, 2017 11:47 - CONCLUSION: Nondisplaced fracture C2 left lateral mass extending into the base of the lamina laterally Ryan Franco MD ADDENDUM: There is a typographical error occurred. The fracture is of the C1 lateral mass Ryan Franco MD Current Medications Administered Medications Medications (Trade) Dose Ordered Sig/James Route PRN Reason Start Time Stop Time Status Last Admin Dose Admin Sodium Chloride (NS Flush) 2 ml BID IV FLUSH 05/17/17 21:00 05/17/17 20:59 Famotidine (Pepcid) 20 mg BID PO 05/17/17 21:00 05/17/17 20:59 Oxycodone/ Acetaminophen (Percocet 5-325 Mg) 1 tab Q4H PRN PO pain 1-10 05/17/17 15:00 05/17/17 20:59 Morphine Sulfate (Morphine Inj) 4 mg Q3H PRN IV PUSH BREAKTHROUGH PAIN 05/17/17 15:00 05/18/17 05:31 Enoxaparin Sodium (Lovenox Inj) 40 mg Q24H SQ 05/17/17 17:00 05/17/17 16:46 Atorvastatin Calcium (Lipitor) 40 mg HS PO 05/17/17 21:00 05/17/17 21:00 Clonazepam (KlonoPIN) 1 mg BID PO 05/17/17 21:00 05/17/17 21:00 Sildenafil Citrate (Revatio) 20 mg TID PO 05/17/17 18:00 05/17/17 17:42 Tamsulosin HCl (Flomax) 0.4 mg HS PO 05/17/17 21:00 05/17/17 21:00 Trazodone HCl (Desyrel) 150 mg HS PO 05/17/17 21:00 05/17/17 20:59 Physical Exam General General Appearance: Well Developed, Anxious, Obese Eyes Eye Exam: Pupils Equal, Pupils Reactive Ears & Nose Ears & Nose Exam: Nasal Mucosa [place] Throat Throat Exam: Oral Mucosa [place] & Moist Neck Neck Remarks Secured with cervical brace Pulmonary Resp Exam: Clear Bilaterally Cardiology CV Exam: Regular Gastrointestinal/Abdomen GI Exam: Soft, Non-Tender, Bowel Sounds Present Musculoskeletal MS Remarks Right distal wrist fracture, secured with splint and dressing Moves fingers on command Integumentary Skin Exam: Warm, Dry Skin Remarks Small abrasion to left side of scalp, no dressing, no acute edema noted Extremeties Extremities Exam: No Edema Neurologic Neuro Exam: Alert, Awake, Oriented, Speech Clear Assessment/Plan Assessment/Plan vital signs reviewed, afebrile 98.7, BP 114/70, labs reviewed, C1 fx lateral mass after radiology review, hemoglobin A1c pending , continue to monitor labs, patient's nutrition. Bowel regimen monitored, states BM yesterday. Acute C1 fracture after fall neurovascular checks, obtain c-collar Appreciate neurosurgery consult and following -Continue collar in place, maintain bed rest for now Right distal radial nondisplaced fracture Appreciate orthopedic consult, and plan a care Type 2 diabetes -Accu-Cheks before meals and at bedtime with insulin therapy, ADA diet Hypertension, stable -Continue home medication Chronic congestive heart failure, stable. Lung sounds show no congestion, encouraged to reposition, cough lightly and deep breathe Sleep apnea uses CPAP at night Denies any shortness of breath or problems with CPAP last night, continue to monitor Discussed with patient Discussed with nurse Discussed with Dr. Max, seen on his behalf Michelle Krause May 18, 2017 07:49
[2017-05-18] MEDS: INSULIN ASPART SUPPLEMENTAL SCALE SQ SCH ×4 (08:00→21:00)
[2017-05-18] MEDS: SILDENAFIL CITRATE 20 MG TAB PO SCH ×2 (09:00→13:00)
[2017-05-18] MEDS: VITAMIN B CMPLX/VITC/FOLIC AC CAP PO SCH (09:00)
[2017-05-18] MEDS: SODIUM CHLORIDE 0.9% FLUSH 10 ML FLUSH IV FLUSH SCH ×2 (09:00→20:51)
[2017-05-18] MEDS: ASPIRIN EC 81 MG TABEC PO SCH (09:00)
[2017-05-18] MEDS: ENALAPRIL MALEATE 5 MG TAB PO SCH (09:00)
[2017-05-18] MEDS: LACTULOSE SYRUP 20 GM/30 ML CUP PO SCH (09:00)
[2017-05-18] MEDS ORDERED: FUROSEMIDE 40 MG TAB PO SCH (09:00)
[2017-05-18] MEDS: METOPROLOL SUCCINATE 50 MG EXTENDED RELEASE TAB PO SCH (09:00)
[2017-05-18] MEDS ORDERED: [UNRECOGNIZED DRUG - OTHER] PO SCH (09:00)
[2017-05-18] MEDS: oxyCODONE/ACETAMINOPHEN 5 MG/325 MG TAB PO PRN ×3 (09:01→20:52)
[2017-05-18] MEDS: DOCUSATE SODIUM 100 MG CAP PO SCH ×2 (09:01→20:52)
[2017-05-18] MEDS: FAMOTIDINE 20 MG TAB PO SCH ×2 (09:02→20:52)
[2017-05-18] MEDS: EZETIMIBE 10 MG TAB PO SCH (09:03)
[2017-05-18] MEDS: MULTIVITAMIN TAB PO SCH (09:11)
[2017-05-18] MEDS: clonazePAM 1 MG TAB PO SCH ×2 (09:11→20:53)
--- NOTE | 2017-05-18 09:19 | HHI.PR ---
Subjective Subjective Notes PTD: 2; HD: 1 Patient lying in bed. No distress noted. No complaints offered at this time. Objective Vitals/I&O Vital Signs Date Time Temp Pulse Resp B/P (MAP) Pulse Ox O2 Delivery O2 Flow Rate FiO2 05/18/17 03:58 98.7 71 18 114/70 (85) 95 05/18/17 03:58 21 05/17/17 14:00 Room Air Labs Laboratory Tests Test 05/17/17 12:31 05/18/17 05:43 White Blood Count 9.8 TH/MM3 Red Blood Count 4.48 MIL/MM3 Hemoglobin 13.8 GM/DL Hematocrit 40.4 % Mean Corpuscular Volume 90.0 FL Mean Corpuscular Hemoglobin 30.9 PG Mean Corpuscular Hemoglobin Concent 34.3 % Red Cell Distribution Width 12.4 % Platelet Count 153 TH/MM3 Mean Platelet Volume 8.6 FL Neutrophils (%) (Auto) 77.0 % Lymphocytes (%) (Auto) 11.6 % Monocytes (%) (Auto) 6.0 % Eosinophils (%) (Auto) 4.8 % Basophils (%) (Auto) 0.6 % Neutrophils # (Auto) 7.5 TH/MM3 Lymphocytes # (Auto) 1.1 TH/MM3 Monocytes # (Auto) 0.6 TH/MM3 Eosinophils # (Auto) 0.5 TH/MM3 Basophils # (Auto) 0.1 TH/MM3 CBC Comment DIFF FINAL Differential Comment Prothrombin Time 10.3 SEC Prothromb Time International Ratio 0.9 RATIO Activated Partial Thromboplast Time 24.3 SEC Blood Urea Nitrogen 11 MG/DL Creatinine 0.96 MG/DL Random Glucose 167 MG/DL Total Protein 6.2 GM/DL Albumin 3.3 GM/DL Calcium Level 8.7 MG/DL Alkaline Phosphatase 90 U/L Aspartate Amino Transf (AST/SGOT) 20 U/L Alanine Aminotransferase (ALT/SGPT) 32 U/L Total Bilirubin 0.6 MG/DL Sodium Level 139 MEQ/L Potassium Level 3.7 MEQ/L Chloride Level 105 MEQ/L Carbon Dioxide Level 29.3 MEQ/L Anion Gap 5 MEQ/L Estimat Glomerular Filtration Rate 76 ML/MIN Radiology Last Impressions Wrist X-Ray 05/17/17 0000 Signed Impressions: Service Date/Time: Wednesday, May 17, 2017 11:35 - CONCLUSION: Subtle nondisplaced fracture cortical disruption ventral aspect of the distal radius. Ryan Franco MD Head CT 05/17/17 0000 Signed Impressions: Service Date/Time: Wednesday, May 17, 2017 11:47 - CONCLUSION: Cerebral atrophy. No acute intracranial abnormality. Chronic right maxillary sinusitis. Don Eden MD Cervical Spine CT 05/17/17 0000 Signed Impressions: Service Date/Time: Wednesday, May 17, 2017 11:47 - CONCLUSION: Nondisplaced fracture C2 left lateral mass extending into the base of the lamina laterally Ryan Franco MD ADDENDUM: There is a typographical error occurred. The fracture is of the C1 lateral mass Ryan Franco MD Narrative Exam GENERAL: This is a 76-year-old male lying in bed. No distress noted. Pleasant and cooperative. SKIN: Warm and dry. HEAD: Atraumatic. Normocephalic. EYES: PERRLA ENT: No nasal bleeding or discharge. Mucous membranes pink and moist. NECK: [place] collar in place. Trachea midline. No JVD. CARDIOVASCULAR: Regular rate and rhythm. RESPIRATORY: No accessory muscle use. Lungs are clear to auscultation. Breath sounds equal bilaterally. No distress or dyspnea. GASTROINTESTINAL: BS + x 4 quads. Abdomen soft, non-tender, nondistended. MUSCULOSKELETAL: Extremities without cyanosis, or edema. RIGHT arm in splint and wrapped in Claus bandage. + peripheral pulses x 4 extremities. Warm with good capillary refill and sensation. MAEW. NEUROLOGICAL: Awake and alert. Normal speech and pattern. A/P Problem List: (1) Closed C1 fracture ICD Codes: S12.000A - Unspecified displaced fracture of first cervical vertebra , initial encounter for closed fracture Status: Acute (2) Distal radius fracture, right ICD Codes: S52.501A - Unspecified fracture of the lower end of right radius, initial encounter for closed fracture Status: Acute Assessment and Plan [place]: This is a 76-year-old male who sustained a fall the day prior to admission. Apparently he slipped on the wooden floor while he was wearing socks. He fell and hit his head, sliding glass door He came to the ED the next morning with headache, neck pain and right wrist pain. INJURIES: C1 fx RIGHT distal radius fx PMHx: Prostate CA, CAD, CHF, Cardiac cath x 3. DM. Sleep apnea, arthritis, Procedures: Consults: Neurosurgery. Orthopedics. Hospitalists. Case management. Diet: 1800 ADA diet. Tolerating po diet. Encourage good po intake with each meal. Pulmonary: Encourage good pulmonary toileting. IS at bedside and pt encouraged to use. Rationale for use explained to patient, and verbalized understanding. PAIN Management: Percocet 5 mg q 4 hours. Morphine 4 mg q 3 hours. Activity: OOB. PT and OT ordered. GI prophylaxis: Pepcid BID. Bowel regimen: Colace and MOM. DVT prophylaxis: Mechanical VTE with SCDs. Chemical management with Lovenox SQ. DC Planning: Case management consulted for assistance with final discharge disposition. Emotional support provided to patient and family at bedside and plan of care discussed. Discussed with RN at bedside. Patient is hemodynamically stable and being managed on the med/surg floor. The trauma team will round each day, and evaluate plan of care on a daily basis. C1 fx Neurosurgery consulted and assisting in management and care Serial neuro checks [place] collar in place Pain management RIGHT distal radius fx Orthopedics consulted Awaiting orthopedic rounds Right arm in splint and wrapped in Claus bandage Pain management PT and OT ordered Prostate CA CAD CHF DM Sleep apnea arthritis Hospitalist consulted to assist in medical management Home medications resumed 1800 ADA diet SSI Patient brought home CPAP machine to hospital Problem Qualifiers (1) Closed C1 fracture: Qualified Codes: S12.001A - Unspecified nondisplaced fracture of first cervical vertebra, initial encounter for closed fracture (2) Distal radius fracture, right: Qualified Codes: S52.501A - Unspecified fracture of the lower end of right radius, initial encounter for closed fracture Ana Eaton May 18, 2017 09:19
[2017-05-18] MEDS ORDERED: OXYC1TAB63 PO (11:41)
[2017-05-18] MEDS ORDERED: MAGN400S PO (11:41)
[2017-05-18] MEDS ORDERED: DOCU1CAP39 PO (11:41)
[2017-05-18 12:30] LABS: HEMATOCRIT 41.7 % (39.0-51.0); MEAN CELL VOLUME 92.4 FL (80.0-100.0); MEAN CORPUSCULAR HEMOGLOBIN 31.5 PG (27.0-34.0); MEAN CORPUSCULAR HGB CONC 34.1 % (32.0-36.0); PLATELET COUNT 158 TH/MM3 (150-450); RED BLOOD COUNT 4.51 MIL/MM3 (4.50-5.90); RED CELL DISTRIBUTION WIDTH 13.5 % (11.6-17.2); REVIEW FLAG FINAL; WHITE BLOOD COUNT 7.7 TH/MM3 (4.0-11.0)
[2017-05-18 13:01] LABS: BICARBONATE 30.4 MEQ/L (21.0-32.0); POTASSIUM 3.8 MEQ/L (3.5-5.1)
--- NOTE | 2017-05-18 13:41 | MB ---
cc: JASON LEWIS DATE OF CONSULTATION: 05/18/2017. REASON FOR CONSULTATION: Right wrist fracture. HISTORY OF PRESENT ILLNESS: The patient is a 76-year-old man who has a medical history for prostate cancer, type 2 diabetes, congestive heart failure, sleep apnea and arthritis. The patient had a fall yesterday. He was walking on some hardwood floors wearing socks, he slipped and he fell injuring his right wrist. He also hit his head. The patient was found to have a C1 fracture and was placed into a collar. Per the patient he says that nonoperative management was recommended by the neurosurgeon. He was found to have a distal radius fracture as well. The patient initially presented to the [facility] Emergency Room and he was transferred to the [facility]. The patient denies any numbness or tingling about the right upper extremity. He says that he has pain with any motion of the wrist. He feels better with the splint applied. He said he had very minor pain about the right shoulder. PAST MEDICAL HISTORY: The patient's medical history is significant as noted above. PAST SURGICAL HISTORY: 1. Cardiac catheterization. 2. Bilateral knee replacements. 3. Left ankle open reduction internal fixation. 4. Tonsillectomy. 5. Prostate surgery. 6. Bilateral hernia repair. MEDICATIONS: See the chart for details. Note that he is insulin-dependent. He takes aspirin 81 milligrams per day. ALLERGIES: DOXYCYCLINE. REVIEW OF SYSTEMS: A twelve-point review of systems is negative except as noted in the history of present illness. PHYSICAL EXAMINATION: VITAL SIGNS: The patient's temperature is 97.5, pulse is 76, respirations 20, pressure 131/67. GENERAL: This patient is awake, alert and oriented times three with normal affect, HEAD, EYES, EARS, NOSE, THROAT: His head did not show obvious sign of trauma. He is currently wearing the cervical spine collar. I could not examine his neck. His extraocular muscles are intact. The oropharynx is moist. HEART: Regular rate and rhythm. LUNGS: Clear to auscultation bilaterally. ABDOMEN: The abdomen is soft, nontender and nondistended. BACK: His back shows no costovertebral angle tenderness. EXTREMITIES: He can actually move the extremities in the lower portion of the legs well without pain. The right lower extremity is currently splinted with a Sugar-Tong splint. He has mild swelling about the fingertips. He can move the fingers but limited moderately. He has normal sensation distally. When I rotate the shoulder to internal and external rotation, this does not create a significant amount of pain. He has some minor discomfort about the shoulder and this may be related up towards the neck. The left upper extremity has good active range of motion. LABS: White blood cell count is 9.8, hematocrit 40.4, platelet count 153,000. Creatinine is 0.96, glucose 167. X-RAYS: I have reviewed the imaging and the report on the right wrist that shows he has a nondisplaced fracture of the distal radius. He does have degenerative changes of the radiocarpal joint. IMPRESSION: 1. Right distal radius fracture nondisplaced with pre-existing osteoarthritis. 2. C1 fracture treated by the neurosurgeon with a cervical collar. DECISION-MAKING: I did review the results of the x-rays and my clinical findings. I do recommend nonoperative management for this condition. The patient currently is splinted with a Sugar-Tong splint. He remains splinted for now. He understands the potential chance for displacement and he does require early follow up to take x-rays to make sure that the fracture remains in good position. If ultimately it does displace, then surgical management could be recommended; however, at this point, I would recommend nonoperative management. He should elevate the extremity. Follow up in the office in one week. MD DAYAMI Gtz/ABIGAIL /1:10 PM /1:20 PM
[2017-05-18] MEDS: ENOXAPARIN SODIUM 40 MG/0.4 ML SYRINGE SQ SCH (16:58)
--- NOTE | 2017-05-18 20:28 | HHI.NSPN ---
Note Status Status: Progress Note Interval History Diagnosis C1 fracture Interval History Mr. Sykes is a 76-year-old white male with history of prostate cancer, type 2 diabetes, CHF, sleep apnea uses CPAP, and osteoarthritis. He presented to the [place] ED after he had a fall last night. Apparently he was walking on hardwood floors wearing socks, and he slipped and fell on the ground injuring his right wrist and hitting his head on a sliding glass door. He did not lose consciousness. No seizure activity reported. No tongue bitting. No incontinence of sotol or urine. He reported a gradual onset of a throbbing type headache since the event occur. He is complaining of generalized posterior neck pain. He also had pain in the right wrist with swelling of the wrist. No numbness, no tingling, no weakness of any extremities. Patient was evaluated, imaging studies were completed. CT of the cervical spine showed a C1 fracture. Right wrist x-ray shows nondisplaced fracture cortical disruption ventral aspect of the distal radius. Patient was transferred to the main hospital and admitted to trauma services. A splint has been placed on the right forearm. Laboratory workup completed essentially unremarkable. Patient is complaining of mild pain to the left neck area but otherwise neurologically intact. Neurosurgery consultation requested 05/18. He has been stable overnight. C collar in place. reports neck pain. No radiculopathy Labs, Micro, & Vital Signs Results Date Time Temp Pulse Resp B/P (MAP) Pulse Ox O2 Delivery O2 Flow Rate FiO2 05/18/17 16:00 98.0 81 20 104/60 (75) 94 05/18/17 12:00 97.5 94 20 99/57 (71) 93 05/18/17 08:00 97.5 76 20 131/67 (88) 95 05/18/17 07:00 72 05/18/17 03:58 98.7 71 18 114/70 (85) 95 05/18/17 03:58 94 21 05/18/17 00:00 97.3 73 16 116/60 (78) 94 05/17/17 21:50 95 21 05/19/17 07:00 Intake Total 1440 ml Balance 1440 ml Constitutional Vital Signs Date Time Temp Pulse Resp B/P (MAP) Pulse Ox O2 Delivery O2 Flow Rate FiO2 05/18/17 16:00 98.0 81 20 104/60 (75) 94 05/18/17 12:00 97.5 94 20 99/57 (71) 93 05/18/17 08:00 97.5 76 20 131/67 (88) 95 05/18/17 07:00 72 05/18/17 03:58 98.7 71 18 114/70 (85) 95 05/18/17 03:58 94 21 05/18/17 00:00 97.3 73 16 116/60 (78) 94 05/17/17 21:50 95 21 05/19/17 07:00 Intake Total 1440 ml Balance 1440 ml Physical Exam Mr Sykes is alert, awake and oriented to time, place and person. Speech is fluent. Higher cognitive functions are normal. Cranial nerve examination demonstrates the pupils to be equal, round, and reactive to light. Extra-ocular movements are intact. Facial motor and sensory function are normal and symmetrical. Gross hearing is intact, bilaterally. The uvula is midline and elevates symmetrically with the soft palate. Sternocleidomastoid and trapezius muscles have normal and symmetrical strength. Other cranial nerves are intact. Cervical spine has immobilization with a hard cervical collar Muscle testing reveals normal bulk and tone overall without rigidity, spasticity , fasciculations, or atrophy. Rigt forearm is splinted. Muscle strength is 5/5 in all muscle groups of both upper extremities including deltoid, biceps, triceps, brachioradialis, wrist extension and shaker repairer. In the lower extremities, strength is 5/5 in both iliopsoas, quadriceps, hamstrings, plantar flexion, dorsiflexion, and extensor hallicus longus. Sensory examination is intact to light touch and sharp/dull discrimination in both the upper and lower extremities, symmetrically. Deep tendon reflexes are 2+ and symmetrical in the biceps, triceps, and brachioradialis, bilaterally, in the upper extremities. In the lower extremities , the patellar and Achilles are 2+, bilaterally. There is a bilateral plantar flexion response. Hoffmanns sign is negative. There is no clonus or other abnormal reflexes noted. Cerebellar examination is intact to [id number] test, rapid rhythmic alternating motion. There is no dysmetria, dysdiadochokinesia, truncal ataxia, or tremor. Medications Current Medications Current Medications Sodium Chloride (NS Flush) 2 ml UNSCH PRN IV FLUSH FLUSH AFTER USING IV ACCESS ; Start 05/17/17 at 15:00 Sodium Chloride (NS Flush) 2 ml BID IV FLUSH Last administered on 05/18/17 09: 00; Start 05/17/17 at 21:00 Ondansetron HCl (Zofran Inj) 4 mg Q6H PRN IV NAUSEA OR VOMITING; Start at 15:00 Famotidine (Pepcid) 20 mg BID PO Last administered on 05/18/17 09:02; Start at 21:00 Docusate Sodium (Colace) 100 mg BID PO Last administered on 05/18/17 09:01; Start 05/17/17 at 21:00 Miscellaneous Information (Post-op Orders (for Pharmacy)) STAT ONCE XX ; Start 05/17/17 at 15:00; Stop 05/17/17 at 16:20; Status DC Oxycodone/ Acetaminophen (Percocet 5-325 Mg) 1 tab Q4H PRN PO pain 1-10 Last administered on 05/18/17 15:06; Start 05/17/17 at 15:00 Morphine Sulfate (Morphine Inj) 4 mg Q3H PRN IV PUSH BREAKTHROUGH PAIN Last administered on 05/18/17 05:31; Start 05/17/17 at 15:00 Naloxone HCl (Narcan Inj) 0.4 mg UNSCH PRN IV PUSH SEE LABEL COMMENTS; Start at 15:00 Enoxaparin Sodium (Lovenox Inj) 40 mg Q24H SQ Last administered on 05/18/17 16 :58; Start 05/17/17 at 17:00 Aspirin (Ecotrin Ec) 81 mg DAILY PO Last administered on 05/18/17 09:00; Start 05/18/17 at 09:00 Atorvastatin Calcium (Lipitor) 40 mg HS PO Last administered on 05/17/17 21:00 ; Start 05/17/17 at 21:00 Calcium Carbonate (Tums Chew) 1,000 mg DAILY PRN CHEW HEARTBURN; Start at 15:00 Clonazepam (KlonoPIN) 1 mg BID PO Last administered on 05/18/17 09:11; Start 05/17/17 at 21:00 Enalapril Maleate (Vasotec) 2.5 mg DAILY PO ; Start 05/18/17 at 09:00 EZETIMIBE (Zetia) 10 mg DAILY PO Last administered on 05/18/17 09:03; Start at 09:00 Furosemide (Lasix) 40 mg DAILY PO ; Start 05/18/17 at 09:00; Stop 05/18/17 at 09 :00; Status DC Sildenafil Citrate (Revatio) 20 mg TID PO Last administered on 05/17/17 17:42 ; Start 05/17/17 at 18:00 Tamsulosin HCl (Flomax) 0.4 mg HS PO Last administered on 05/17/17 21:00; Start 05/17/17 at 21:00 Trazodone HCl (Desyrel) 150 mg HS PO Last administered on 05/17/17 20:59; Start 05/17/17 at 21:00 Vitamin B Complex/ Vit C/Folic Acid (Nephrocaps) 1 cap DAILY PO Last administered on 05/18/17 09:00; Start 05/18/17 at 09:00 Non-Formulary Medication 522 mg DAILY PO ; Start 05/18/17 at 09:00; Status UNV Patient Own Medication PT OWN MED: KWIK... HS SQ ; Start 05/17/17 at 21:00; Status Future Hold Patient Own Medication PT OWN MED: GARRET... DAILY@0600 SQ ; Start 05/18/17 at 06: 00; Status Future Hold Metoprolol Succinate (Toprol Xl) 100 mg DAILY PO ; Start 05/18/17 at 09:00 Multivitamins (Theragran) 1 tab DAILY PO Last administered on 05/18/17 09:11; Start 05/18/17 at 09:00 Miscellaneous (Pill Splitter) 1 ea UNSCH PRN OTHER SEE LABEL COMMENTS; Start at 16:15 Dextrose (D50w (Vial) Inj) 50 ml UNSCH PRN IV PUSH HYPOGLYCEMIA-SEE COMMENTS; Start 05/17/17 at 17:15; Stop 05/17/17 at 20:08; Status DC Glucagon (Glucagon Inj) 1 mg UNSCH PRN OTHER HYPOGLYCEMIA-SEE COMMENTS; Start 05/17/17 at 17:15; Stop 05/17/17 at 20:08; Status DC Insulin Aspart (NovoLOG SUPPLEMENTAL SCALE) 1 ACHS SLIDING SCALE SQ ; Start at 21:00; Stop 05/17/17 at 21:00; Status DC Dextrose (D50w (Vial) Inj) 50 ml UNSCH PRN IV PUSH HYPOGLYCEMIA-SEE COMMENTS; Start 05/17/17 at 18:30 Glucagon (Glucagon Inj) 1 mg UNSCH PRN OTHER HYPOGLYCEMIA-SEE COMMENTS; Start 05/17/17 at 18:30 Insulin Aspart (NovoLOG SUPPLEMENTAL SCALE) 1 ACHS SLIDING SCALE SQ Last administered on 05/18/17t 12:51; Start 05/17/17 at 21:00 Magnesium Hydroxide (Milk Of Magnesia Liq) 30 ml HS PO ; Start 05/17/17 at 21:00 ; Stop 05/18/17 at 07:48; Status DC Magnesium Hydroxide (Milk Of Magnesia Liq) 30 ml HS PO ; Start 05/18/17 at 21:00 Lactulose (Lactulose Liq) 30 ml DAILY PO ; Start 05/18/17 at 09:00 Medical Decision Making MDM Remarks Last 48 hours Impressions Wrist X-Ray 05/17/17 0000 Signed Impressions: Service Date/Time: Wednesday, May 17, 2017 11:35 - CONCLUSION: Subtle nondisplaced fracture cortical disruption ventral aspect of the distal radius. Ryan Franco MD Head CT 05/17/17 0000 Signed Impressions: Service Date/Time: Wednesday, May 17, 2017 11:47 - CONCLUSION: Cerebral atrophy. No acute intracranial abnormality. Chronic right maxillary sinusitis. Don Eden MD Cervical Spine CT 05/17/17 0000 Signed Impressions: Service Date/Time: Wednesday, May 17, 2017 11:47 - CONCLUSION: Nondisplaced fracture C2 left lateral mass extending into the base of the lamina laterally Ryan Franco MD ADDENDUM: There is a typographical error occurred. The fracture is of the C1 lateral mass Ryan Franco MD Plan Plan Remarks 1. C1 fracture 2. Right distal radius fracture nondisplaced with pre-existing osteoarthritis. Attending Statement Continue neuro checks. Pulmonary.. Continue aggressive pulmonary toilette, nasotracheal suction, and breathing treatments with nebulizers. Radius fracture. Conttinue nonoperative managemen. The patient currently is splinted with a Sugar-Tong splint Nutrition. NPO Renal. monitor closely urine output, BUN and creatinine Endocrine. Monitor serial Acu checks and SSI as needed in detail ID monitor for signs of infection Protonix for stress ulcer prophylaxis Girish hose and SCD's for DVT prophylaxis. Fredis Ocasio MD May 18, 2017 20:27
[2017-05-18] MEDS: TAMSULOSIN HCL 0.4 MG CAP PO SCH (20:52)
[2017-05-18] MEDS: ATORVASTATIN 40 MG TAB PO SCH (20:52)
[2017-05-18] MEDS: traZODone HCL 50 MG TAB PO SCH (20:53)
[2017-05-18] MEDS ORDERED: MAGNESIUM HYDROXIDE SUSP 30 ML CUP PO SCH (21:00)
[2017-05-19] VITALS (7 sets, daily range): BP systolic 105–157; BP diastolic 57–81; PULSE 82–90; RESP 18–20; TEMP 97.5–99.4; O2SAT 92–97
[2017-05-19 07:41] LABS: AUTOMATED NEUTROPHIL # 4.9 TH/MM3 (1.8-7.7); BASOPHIL % 0.3 % (0.0-2.0); EOSINOPHIL # 0.6 TH/MM3 (0-0.4); EOSINOPHIL % 7.7 % (0.0-4.0); HEMATOCRIT 39.2 % (39.0-51.0); HEMO FLAGS DIFF FINAL; LYMPH % 16.6 % (9.0-44.0); LYMPHOCYTE # 1.2 TH/MM3 (1.0-4.8); MEAN CELL VOLUME 92.8 FL (80.0-100.0); MEAN CORPUSCULAR HEMOGLOBIN 31.7 PG (27.0-34.0); MEAN CORPUSCULAR HGB CONC 34.2 % (32.0-36.0); MONO % 7.9 % (0.0-8.0); NEUT % 67.5 % (16.0-70.0); PLATELET COUNT 138 TH/MM3 (150-450); RED BLOOD COUNT 4.23 MIL/MM3 (4.50-5.90); RED CELL DISTRIBUTION WIDTH 13.3 % (11.6-17.2); WHITE BLOOD COUNT 7.3 TH/MM3 (4.0-11.0)
[2017-05-19 08:00] LABS: ALT (GPT) 25 U/L (12-78); ANION GAP 4 MEQ/L (5-15); AST (GOT) 17 U/L (15-37); BLOOD UREA NITROGEN 13 MG/DL (7-18); CHLORIDE 103 MEQ/L (98-107); GLOMERULAR FILTRATION RATE 75 ML/MIN (>89); POTASSIUM 3.6 MEQ/L (3.5-5.1); SODIUM (NA) 139 MEQ/L (136-145)
[2017-05-19] MEDS: INSULIN ASPART SUPPLEMENTAL SCALE SQ SCH ×2 (08:00→12:00)
[2017-05-19 08:03] LABS: ALKALINE PHOSPHATASE 81 U/L (45-117); TOTAL BILIRUBIN ADULT 0.7 MG/DL (0.2-1.0)
--- NOTE | 2017-05-19 08:40 | HHI.PR ---
Subjective Subjective Remarks Up in chair Awake alert, A burning pain especially on the left side of the neck with any increased activity Discussed his pain meds and instructions on when he should take dose Afebrile Review of Systems Constitutional Constitutional: Fatigue, Weakness (secondary to accident/fall) Constitutional Remarks 10 point ROS done positives noted Pulmonary Pulmonary Remarks Uses CPAP at night Musculoskeletal MS: Weakness, Stiffness, Swelling (right arm and wrist), Discomfort/Pain ( right arm wrist and neck) Psychiatric Psychiatric: Normal Mood Vitals/Results Vital Signs Vital Signs Date Time Temp Pulse Resp B/P (MAP) Pulse Ox O2 Delivery O2 Flow Rate FiO2 05/19/17 08:10 98.7 88 20 157/81 (106) 97 05/19/17 06:07 93 21 05/19/17 04:00 97.5 90 18 121/59 (79) 97 05/19/17 02:09 93 21 05/19/17 00:00 97.5 86 20 118/71 (87) 92 05/18/17 22:15 93 21 05/18/17 20:00 98.2 89 18 113/65 (81) 93 05/18/17 20:00 86 05/18/17 16:00 98.0 81 20 104/60 (75) 94 05/18/17 12:00 97.5 94 20 99/57 (71) 93 CBC/BMP: 05/19/17 0627 05/19/17 0627 Lab Results Laboratory Tests Test 05/18/17 11:12 05/19/17 06:27 White Blood Count 7.7 TH/MM3 7.3 TH/MM3 Red Blood Count 4.51 MIL/MM3 4.23 MIL/MM3 Hemoglobin 14.2 GM/DL 13.4 GM/DL Hematocrit 41.7 % 39.2 % Mean Corpuscular Volume 92.4 FL 92.8 FL Mean Corpuscular Hemoglobin 31.5 PG 31.7 PG Mean Corpuscular Hemoglobin Concent 34.1 % 34.2 % Red Cell Distribution Width 13.5 % 13.3 % Platelet Count 158 TH/MM3 138 TH/MM3 Mean Platelet Volume 9.0 FL 9.1 FL Blood Urea Nitrogen 11 MG/DL 13 MG/DL Creatinine 1.06 MG/DL 0.97 MG/DL Random Glucose 182 MG/DL 162 MG/DL Calcium Level 8.8 MG/DL 8.6 MG/DL Sodium Level 137 MEQ/L 139 MEQ/L Potassium Level 3.8 MEQ/L 3.6 MEQ/L Chloride Level 103 MEQ/L 103 MEQ/L Carbon Dioxide Level 30.4 MEQ/L 32.0 MEQ/L Anion Gap 4 MEQ/L 4 MEQ/L Estimat Glomerular Filtration Rate 68 ML/MIN 75 ML/MIN Neutrophils (%) (Auto) 67.5 % Lymphocytes (%) (Auto) 16.6 % Monocytes (%) (Auto) 7.9 % Eosinophils (%) (Auto) 7.7 % Basophils (%) (Auto) 0.3 % Neutrophils # (Auto) 4.9 TH/MM3 Lymphocytes # (Auto) 1.2 TH/MM3 Monocytes # (Auto) 0.6 TH/MM3 Eosinophils # (Auto) 0.6 TH/MM3 Basophils # (Auto) 0.0 TH/MM3 CBC Comment DIFF FINAL Differential Comment Total Protein 5.9 GM/DL Albumin 3.1 GM/DL Alkaline Phosphatase 81 U/L Aspartate Amino Transf (AST/SGOT) 17 U/L Alanine Aminotransferase (ALT/SGPT) 25 U/L Total Bilirubin 0.7 MG/DL Current Medications Administered Medications Medications (Trade) Dose Ordered Sig/James Route PRN Reason Start Time Stop Time Status Last Admin Dose Admin Sodium Chloride (NS Flush) 2 ml BID IV FLUSH 05/17/17 21:00 05/18/17 20:51 Famotidine (Pepcid) 20 mg BID PO 05/17/17 21:00 05/19/17 08:47 Docusate Sodium (Colace) 100 mg BID PO 05/17/17 21:00 05/19/17 08:47 Oxycodone/ Acetaminophen (Percocet 5-325 Mg) 1 tab Q4H PRN PO pain 1-10 05/17/17 15:00 05/18/17 20:52 Morphine Sulfate (Morphine Inj) 4 mg Q3H PRN IV PUSH BREAKTHROUGH PAIN 05/17/17 15:00 05/18/17 22:17 Enoxaparin Sodium (Lovenox Inj) 40 mg Q24H SQ 05/17/17 17:00 05/18/17 16:58 Aspirin (Ecotrin Ec) 81 mg DAILY PO 05/18/17 09:00 05/19/17 08:47 Atorvastatin Calcium (Lipitor) 40 mg HS PO 05/17/17 21:00 05/18/17 20:52 Clonazepam (KlonoPIN) 1 mg BID PO 05/17/17 21:00 05/19/17 08:46 Enalapril Maleate (Vasotec) 2.5 mg DAILY PO 05/18/17 09:00 05/19/17 08:47 EZETIMIBE (Zetia) 10 mg DAILY PO 05/18/17 09:00 05/19/17 08:46 Sildenafil Citrate (Revatio) 20 mg TID PO 05/17/17 18:00 05/19/17 08:55 Tamsulosin HCl (Flomax) 0.4 mg HS PO 05/17/17 21:00 05/18/17 20:52 Trazodone HCl (Desyrel) 150 mg HS PO 05/17/17 21:00 05/18/17 20:53 Vitamin B Complex/ Vit C/Folic Acid (Nephrocaps) 1 cap DAILY PO 05/18/17 09:00 05/19/17 08:46 Metoprolol Succinate (Toprol Xl) 100 mg DAILY PO 05/18/17 09:00 05/19/17 08:52 Multivitamins (Theragran) 1 tab DAILY PO 05/18/17 09:00 05/19/17 08:55 Insulin Aspart (NovoLOG SUPPLEMENTAL SCALE) 1 ACHS SLIDING SCALE SQ 05/17/17 21:00 05/19/17 08:00 Magnesium Hydroxide (Milk Of Magnesia Liq) 30 ml HS PO 05/18/17 21:00 05/18/17 20:51 Physical Exam General General Appearance: Well Developed, Anxious (mild but feels better today), Obese Eyes Eye Exam: Pupils Equal, Pupils Reactive Ears & Nose Ears & Nose Exam: Nasal Mucosa [place] Throat Throat Exam: Oral Mucosa [place] & Moist Neck Neck Remarks Secured with cervical [place] collar brace Pulmonary Resp Exam: Clear Bilaterally Cardiology CV Exam: Regular Gastrointestinal/Abdomen GI Exam: Soft, Non-Tender, Bowel Sounds Present Musculoskeletal MS Remarks Right distal wrist fracture, secured with splint and dressing Moves fingers on command Integumentary Skin Exam: Warm, Dry Skin Remarks Small abrasion to left side of scalp, no dressing, no acute edema noted Extremeties Extremities Exam: No Edema Neurologic Neuro Exam: Alert, Awake, Oriented, Speech Clear Assessment/Plan Assessment/Plan vital signs reviewed, afebrile BP trends up. monitor labs reviewed, hemoglobin A1c pending, blood sugar 162, Bowel regimen monitored, states BM X 2 days ago. Acute C1 fracture after fall, stable for now Patient is awake and responsive. Appreciate neurosurgery consult and following as well as trauma. Plan for nonoperative treatment for now, continue neuro checks which have been normal so far, visited patient today and told him from neurosurgery standpoint he could go home, caution will add physical therapy and occupational therapy at home and home health Aggressive pulmonary toiletry, incentive spirometry at bedside, respiratory to assess every 4-8 hours as needed for any NT suction, duo nebs every every 4, -Continue [place] collar in place, orders for OOB, PT to work with mobility and strengthing, follow-up with him in 2 weeks Right distal radial nondisplaced fracture, adjusted in the emergency room setting, continue sugar tong splint, nonoperative management for now as long as fracture remains stable. We will see in the office as outpatient in 1 week, if fracture becomes unstable we will consider surgical option. Appreciate orthopedic consult, Type 2 diabetes -Accu-Cheks before meals and at bedtime with insulin therapy, ADA diet, encourage by mouth fluids Hypertension, stable -Continue home medication Chronic congestive heart failure, stable. Lung sounds show no congestion, encouraged to reposition, cough lightly and deep breathe, aggressive pulmonary toilet training as noted above Sleep apnea uses CPAP at night Denies any shortness of breath or problems with CPAP last night, continue to monitor Discharge planning probable today, okayed for DC from [facility] neurosurgery standpoint, physical therapy and home health to assist, Case management consult Discussed with patient Discussed with nurse Discussed with Dr. Max, seen on his behalf Michelle Krause May 19, 2017 08:40
[2017-05-19] MEDS: clonazePAM 1 MG TAB PO SCH (08:46)
[2017-05-19] MEDS: VITAMIN B CMPLX/VITC/FOLIC AC CAP PO SCH (08:46)
[2017-05-19] MEDS: EZETIMIBE 10 MG TAB PO SCH (08:46)
[2017-05-19] MEDS: ENALAPRIL MALEATE 5 MG TAB PO SCH (08:47)
[2017-05-19] MEDS: DOCUSATE SODIUM 100 MG CAP PO SCH (08:47)
[2017-05-19] MEDS: ASPIRIN EC 81 MG TABEC PO SCH (08:47)
[2017-05-19] MEDS: FAMOTIDINE 20 MG TAB PO SCH (08:47)
[2017-05-19] MEDS: METOPROLOL SUCCINATE 50 MG EXTENDED RELEASE TAB PO SCH (08:52)
[2017-05-19] MEDS: MULTIVITAMIN TAB PO SCH (08:55)
[2017-05-19] MEDS: SILDENAFIL CITRATE 20 MG TAB PO SCH ×2 (08:55→12:43)
[2017-05-19] MEDS: LACTULOSE SYRUP 20 GM/30 ML CUP PO SCH (08:55)
--- NOTE | 2017-05-19 09:41 | HHI.FF ---
Face to Face Verification Diagnosis: (1) Chronic congestive heart failure (2) Hypertension (3) Sleep apnea (4) Type 2 diabetes mellitus (5) Closed C1 fracture (6) Distal radius fracture, right Physical Therapy Order: Evaluate and Treat, Improve ambulation, Strength and gait training Occupational Therapy Order: Evaluate and Treat, Improve ADL, Gross motor coordination, Fine motor coordination Home Health Nursing Order: Signs/symptoms of disease process Nursing assessment with vital signs I have seen patient Micheal Sykes on 05/19/17. My clinical findings support the need for the requested home health care services because: Deconditioned w/ increased weakness Limited ability to care for self I certify that my clinical findings support that this patient is homebound because: Unsteady gait/balance Michelle Krause May 19, 2017 09:41
[2017-05-19] MEDS: oxyCODONE/ACETAMINOPHEN 5 MG/325 MG TAB PO PRN (09:59)
[2017-05-19 11:41] LABS: HEMOGLOBIN A1a 1.2 %; HEMOGLOBIN A1b 1.9 %; HEMOGLOBIN Ao 83.3 %; HEMOGLOBIN P3 3.8 %
[2017-05-19] MEDS ORDERED: RESP: ALBUTEROL 2.5 MG/IPRATROPIUM 0.5 MG NEB (SCH) NEB (12:00)
--- NOTE | 2017-05-19 12:02 | HHI.DS ---
Discharge Summary Admission Date May 17, 2017 at 12:46 Discharge Date: May 19, 2017 Admitting Diagnosis C1 FRACTURE, RIGHT DISTAL RADIUS FRACTURE (1) Closed C1 fracture ICD Codes: S12.000A - Unspecified displaced fracture of first cervical vertebra , initial encounter for closed fracture Diagnosis: Principal Status: Acute (2) Distal radius fracture, right ICD Codes: S52.501A - Unspecified fracture of the lower end of right radius, initial encounter for closed fracture Diagnosis: Principal Status: Acute Brief History Fall CBC/BMP: 05/19/17 0627 05/19/17 0627 Significant Findings Laboratory Tests Test 05/17/17 12:31 05/18/17 05:43 05/18/17 11:12 05/19/17 06:27 Red Blood Count 4.48 MIL/MM3 (4.50-5.90) 4.23 MIL/MM3 (4.50-5.90) Neutrophils (%) (Auto) 77.0 % (16.0-70.0) Eosinophils (%) (Auto) 4.8 % (0.0-4.0) 7.7 % (0.0-4.0) Eosinophils # (Auto) 0.5 TH/MM3 (0-0.4) 0.6 TH/MM3 (0-0.4) Random Glucose 167 MG/DL (74-106) 182 MG/DL (74-106) 162 MG/DL (74-106) Total Protein 6.2 GM/DL (6.4-8.2) 5.9 GM/DL (6.4-8.2) Albumin 3.3 GM/DL (3.4-5.0) 3.1 GM/DL (3.4-5.0) Estimat Glomerular Filtration Rate 76 ML/MIN (>89) 68 ML/MIN (>89) 75 ML/MIN (>89) Anion Gap 4 MEQ/L (5-15) 4 MEQ/L (5-15) Platelet Count 138 TH/MM3 (150-450) Imaging Last Impressions Wrist X-Ray 05/17/17 0000 Signed Impressions: Service Date/Time: Wednesday, May 17, 2017 11:35 - CONCLUSION: Subtle nondisplaced fracture cortical disruption ventral aspect of the distal radius. Ryan Franco MD Head CT 05/17/17 0000 Signed Impressions: Service Date/Time: Wednesday, May 17, 2017 11:47 - CONCLUSION: Cerebral atrophy. No acute intracranial abnormality. Chronic right maxillary sinusitis. Don Eden MD Cervical Spine CT 05/17/17 0000 Signed Impressions: Service Date/Time: Wednesday, May 17, 2017 11:47 - CONCLUSION: Nondisplaced fracture C2 left lateral mass extending into the base of the lamina laterally Ryan Franco MD ADDENDUM: There is a typographical error occurred. The fracture is of the C1 lateral mass Ryan Franco MD PE at Discharge GENERAL: This is a 76-year-old male OOB in recliner chair eating lunch. No distress noted. Pleasant and cooperative. SKIN: Warm and dry. HEAD: Atraumatic. Normocephalic. EYES: PERRLA ENT: No nasal bleeding or discharge. Mucous membranes pink and moist. NECK: [place] collar in place. Trachea midline. No JVD. CARDIOVASCULAR: Regular rate and rhythm. RESPIRATORY: No accessory muscle use. Lungs are clear to auscultation. Breath sounds equal bilaterally. No distress or dyspnea. GASTROINTESTINAL: BS + x 4 quads. Abdomen soft, non-tender, nondistended. MUSCULOSKELETAL: Extremities without cyanosis, or edema. RIGHT arm in splint and wrapped in [place] bandage. + peripheral pulses x 4 extremities. Warm with good capillary refill and sensation. MAEW. NEUROLOGICAL: Awake and alert. Normal speech and pattern. Hospital Course [place]: This is a 76-year-old male who sustained a fall the day prior to admission. Apparently he slipped on the wooden floor while he was wearing socks. He fell and hit his head, sliding glass door He came to the ED the next morning with headache, neck pain and right wrist pain. INJURIES: C1 fx RIGHT distal radius fx PMHx: Prostate CA, CAD, CHF, Cardiac cath x 3. DM. Sleep apnea, arthritis, Procedures: Consults: Neurosurgery. Orthopedics. Hospitalists. Case management. The patient is now tolerating a po diet. Eating and drinking well. Pain is being managed well with PO pain medications, and patient is being a provided with a script for pain meds upon discharge. (NO driving while taking narcotic pain medication enforced to patient.) We have recommended to patient to continue with stool softeners while taking narcotic pain medications to prevent constipation. Pt has been participating in PT and OT while admitted at [place] and has been ambulating with their assistance and independently . Home health PT is recommended and ordered by hospitalist. All follow up appointments have been provided and discussed with the patient. It is recommended that the patient keeps all his follow up appointments for continued recovery. Wear [place] Collar at all times. No Driving. Therefore, the patient is stable to be safely discharged home from a trauma surgery standpoint. Thank you for allowing us to participate in his care. We wish Micheal the best in his recovery. C1 fx Neurosurgery consulted and assisting in management and care Serial neuro checks [place] collar at all times. No driving Pain management Follow up with neurosurgery as outpatient RIGHT distal radius fx Orthopedics consulted and assisting in management and care Nonoperative management at this time Right arm in splint and wrapped in [place] bandage Pain management PT and OT ordered Follow-up with orthopedics outpatient Prostate CA CAD CHF DM Sleep apnea arthritis Hospitalist consulted to assist in medical management Home medications resumed 1800 ADA diet SSI Patient brought home CPAP machine to hospital. l Pt Condition on Discharge: Stable Discharge Disposition: Disch w/ Home Health Serv Discharge Instructions DIET: Follow Instructions for: Heart Healthy Diet, Diabetic Diet Activities you can perform: Non Weight Bearing (RUE) Activities to Avoid: Concussion Sports, Contact Sports, Lifting/Bending, Weight Bearing, Strenuous Activity, Driving Ana Eaton May 19, 2017 12:02
[2017-05-19] MEDS ORDERED: COMMODE 3-IN-11 MIS (12:59)
[2017-06-13] MEDS ORDERED: TRAM50TA PO (14:40)
== END 2017-05-19 14:38 | disposition home health service (06) | DRG 552 ==
LOC: PHEFT 11:14 → PHEDA 12:46 → N03A 14:37 → N05A 15:37
PROVIDERS: ADMIT Surgery; ATTEND Surgery
DX: S12.100A Unspecified displaced fracture of second cervical vertebra, initial encounter for closed fracture (principal); I11.0 Hypertensive heart disease with heart failure; I50.9 Heart failure, unspecified; E11.9 Type 2 diabetes mellitus without complications; S52.501A Unspecified fracture of the lower end of right radius, initial encounter for closed fracture; S12.001A Unspecified nondisplaced fracture of first cervical vertebra, initial encounter for closed fracture; I25.10 Atherosclerotic heart disease of native coronary artery without angina pectoris; Z85.46 Personal history of malignant neoplasm of prostate; Y92.009 Unspecified place in unspecified non-institutional (private) residence as the place of occurrence of the external cause; Z79.4 Long term (current) use of insulin; G47.30 Sleep apnea, unspecified; M19.90 Unspecified osteoarthritis, unspecified site; Z96.653 Presence of artificial knee joint, bilateral; K21.9 Gastro-esophageal reflux disease without esophagitis; N40.0 Benign prostatic hyperplasia without lower urinary tract symptoms; W01.0XXA Fall on same level from slipping, tripping and stumbling without subsequent striking against object, initial encounter
CPT/HCPCS: 29125; 70450; 72125; 73110; 80048; 80053; 82948; 83036; 85025; 85027; 85610; 85730; 94150; 94664; J1650; J1815; J2270; L0150; L0172

== ENCOUNTER 2017-08-01 08:41 | Day surgery (SDC) | payer MEDICARE, BC ==
[~2017-08-01] VITALS: Ht 180.3 cm; Wt 121.0 kg
[~2017-08-01 08:41] MED LIST changes: +ACIP20TA19 PO; -ACIP20TA6 PO; -ASPI81TA11 PO; +ASPI81TA23 PO; +COMMODE 3-IN-11 MIS; +DOCU1CAP39 PO; +EZET10 PO; +MAGN400S PO; +METO-393 PO; -METO200T3 PO; +OXYC1TAB63 PO; +TRAM50TA PO; -ZETI10TA5 PO
[2017-08-01 09:03] VITALS: BP 117/74; PULSE 83; RESP 20; TEMP 98.1; O2SAT 90
[2017-08-01] MEDS ORDERED: SODIUM CHLOR 0.9% 1000 ML IV SCH (09:30)
[2017-08-01] MEDS ORDERED: EXEN1INJ SQ (09:47)
[2017-08-01 10:21] LABS: AUTOMATED NEUTROPHIL # 4.1 TH/MM3 (1.8-7.7); BASOPHIL % 0.4 % (0.0-2.0); EOSINOPHIL # 0.4 TH/MM3 (0-0.4); EOSINOPHIL % 5.5 % (0.0-4.0); HEMATOCRIT 38.7 % (39.0-51.0); HEMO FLAGS DIFF FINAL; LYMPH % 23.7 % (9.0-44.0); LYMPHOCYTE # 1.6 TH/MM3 (1.0-4.8); MEAN CELL VOLUME 91.6 FL (80.0-100.0); MEAN CORPUSCULAR HGB CONC 33.8 % (32.0-36.0); MONO % 9.1 % (0.0-8.0); NEUT % 61.3 % (16.0-70.0); PLATELET COUNT 147 TH/MM3 (150-450); RED BLOOD COUNT 4.23 MIL/MM3 (4.50-5.90); RED CELL DISTRIBUTION WIDTH 12.9 % (11.6-17.2); WHITE BLOOD COUNT 6.6 TH/MM3 (4.0-11.0)
[2017-08-01 10:28] LABS: APTT (PATIENT) 22.3 SEC (24.3-30.1); PROTHROMBIN TIME - PATIENT 10.1 SEC (9.8-11.6)
[2017-08-01] MEDS ORDERED: LIDOCAINE 1%/EPINEPHrine 1:100,000 SOLN 20 ML VIAL ONE (11:00)
[2017-08-01] MEDS ORDERED: MIDAZOLAM HCL 2 MG/2 ML VIAL ONE (11:09)
--- NOTE | 2017-08-01 12:01 | PD.RAD ---
Post CT Procedure Prog Note Pre Procedure Diagnosis: (1) Bone mass Post Procedure Diagnosis: (1) Bone mass Procedure Date: Aug 01, 2017 Supervising Radiologist: Alfred Oakes Anesthesia: Conscious Sedation Plan of Activity Patient to Unit: [facility]OP[facility] Patient Condition: Good See PACS Report for procedural detail/treatment Alfred Oakes MD Aug 01, 2017 12:01
[2017-08-01 12:30] VITALS: BP 133/79; PULSE 75; RESP 18; TEMP 97.6; O2SAT 92
[2017-08-01 12:45] VITALS: BP 123/74; PULSE 76; RESP 18; O2SAT 92
[2017-08-01 13:15] VITALS: BP 112/90; PULSE 75; RESP 18; O2SAT 96
--- NOTE | 2017-08-01 16:07 | RADRPT ---
EXAM DATE/TIME: 08/01/2017 11:27 [facility] COMPARISON: No previous studies available for comparison. INDICATIONS : History of solitary lytic left iliac lesion. SEDATION TIME: 40 minutes BIOPSY SITE: Left ilium MEDICATION(S): 1.) 3 mg midazolam (Versed) IV 2.) 200 mcg fentanyl (Sublimaze) IV DEVICE(S): 1.) 11 gauge Bone biopsy needle MEDICAL HISTORY : Carcinoma, prostate. Congestive heart failure. Diabetes mellitus type 2. Hypertension. SURGICAL HISTORY : None. ENCOUNTER: Initial ACUITY: 1 day PAIN SCORE: 0/10 LOCATION: Left pelvis A total of one core specimen(s) were obtained and sent to the laboratory for pathologic evaluation. PROCEDURE: 1. CT guided bone deep biopsy. Prior to the procedure informed consent was obtained. Any appropriate prior imaging studies were rev iewed. Using automated exposure control and adjustment of the mA and/or kV according to patient size, radiat ion dose was kept as low as reasonably achievable to obtain optimal diagnostic quality images. DICOM format image data is available electronically for review and comparison. The site was prepped in a sterile fashion. Full sterile technique was used, including cap, mask, kelli rile gloves and gown and a large sterile sheet. Hand hygiene and 2% chlorhexidine and/or betadine/al cohol prep was utilized per protocol for cutaneous antisepsis. The skin and subcutaneous tissues wer e infiltrated with local anesthetic solution. With CT guidance the previously identified target was localized. Core biopsies did not healed any sig nificant tissue. Therefore aspirations were performed and submitted in multiple different solutions i ncluding RPMI. Sample preparation and handling were further discussed with pathology at the conclusio n of the procedure. Adequate hemostasis was obtained with compression at the puncture site. Follow-up CT scan reveals no hemorrhage. The patient tolerated the procedure well and there were no complications. The patient was returned to the Radiology Outpatient Unit in stable condition. CONCLUSION: Uncomplicated CT guided biopsy of lytic left iliac bone lesion. Alfred Oakes MD on August 01, 2017 at 16:05 Board Certified Radiologist. This report was verified electronically.
== END 2017-08-01 14:45 | disposition home or self-care (01) ==
LOC: HRIP 08:41 → HRAD 08:41
PROVIDERS: ATTEND Internal Medicine Hematology
DX: M89.9 Disorder of bone, unspecified (principal); D47.2 Monoclonal gammopathy; I11.0 Hypertensive heart disease with heart failure; I50.9 Heart failure, unspecified; E11.9 Type 2 diabetes mellitus without complications; Z85.46 Personal history of malignant neoplasm of prostate
CPT/HCPCS: 20225; 77012; 85025; 85610; 85730; 88184; 88185; 88233; 88264; 88280; 88305; 88341; 88342; 99152; 99153; C1830; J2250; J3010; J7030